=== PATIENT | male | born 1965 | race Caucasian/White ===

== ENCOUNTER 2017-02-28 10:36 | Day surgery (SDC) | payer BC ==
--- NOTE | 2017-02-28 06:24 | PCM.HP ---
H&P History of Present Illness - General Date of Service: 02/28/17 Admit Problem/Dx: Rectal bleeding, anemia Source of Information: Patient History Limitations: Reports: No limitations - History of Present Illness Initial Comments - Free Text/Narative: The patient is a 51-year-old male initially referred by Dr. Yary Fung for bleeding hemorrhoids. He was last evaluated for rectal bleeding on 01/17/17. He reports the following changes to his medical history. He does report bleeding is better. He has lost weight with intention, as he cut out sugar and carbs as he was getting sores on the inside of his mouth. He developed what his describes as a pressure sore last week. She noted a callus near his posterior anus, this opened up and is now the size of a quarter. She has been applying neosporin daily to the area without improvement. She reports he has never had a pressure sore in the past. He also reports he has had two skin lesions. One to left chest that he squeezed and a thick cheese like substance was noted. This area has resolved. He also had a skin lesion to the right chest that had hair and a thin purulent discharge that they did squeeze and did shoot across the room. Patient is a quadriplegic. Previously reported every other day has bowel program , which his administers. The program involves an enema and stimulation digitally. He does take Senna and Miralax as well. Has hemorrhoids and they have noted bleeding with routines. Reports-His bleeding was really bad when he saw Dr. Fung. Has had little to no bleeding since made this appointment. Has had external hemorrhoids x20 years, no firm or purple discoloration noted to the hemorrhoids. One in particular was very inflamed. . Has not done anything for the hemorrhoids, other have started completing the bowel program with extra care/gentleness. Stools are soft. He does have microcytic/iron deficiency anemia. Hgb/Hct 10.4/34.7 on 12/28/16. Down from 14.2/43.3 on . Now taking iron supplement. Had one unformed stools recently. Has had hematochezia. NO: melena. Stools are darker with iron, no darker stools prior to iron. Has Soft stools every other day. Has had some intentional weight loss. No change in stool caliber. No abdominal pain. Denies history of ulcerative colitis or Crohn's disease. Denies any family history of inflammatory bowel disease or GI cancers. Last colonoscopy was 2008, due to rectal bleeding? . No history of reflux, heartburn, nausea, vomiting, or dysphagia. - Related Data Allergies/Adverse Reactions: Allergies Allergy/AdvReac Type Severity Reaction Status Date / Time amoxicillin Allergy Cannot Verified 02/28/17 11:22 Remember Home Medications: Home Meds Alpha Lipoic Acid 600 mg PO DAILY 03/21/16 [History] Aspirin [Halfprin] 81 mg PO DAILY 03/21/16 [History] Baclofen 40 mg PO QID 03/21/16 [History] Calcium/Magnesium/Zinc [Calcium & Magnesium plus Zinc] 1 tab PO DAILY 03/21/16 [ History] Chromium Picolinate 500 mcg PO DAILY 03/21/16 [History] Diazepam [Valium] 5 mg PO BID 03/21/16 [History] Fish Oil/[place]-3 Fatty Acids [Fish Oil 1,000 MG] 1,000 mg PO BID 03/21/16 [ History] Multivitamin with Minerals [Jacek Multivitamin with Mineral] 1 tab PO BID [History] Na Phos,M-B/Na Phos,Di-Ba [Fleet Enema] 133 ml RC Q48H 03/21/16 [History] Polyethylene Glycol 3350 [MiraLAX] 17 gm PO Q48H 03/21/16 [History] Sennosides/Docusate Sodium [Senna S Tablet] 2 each PO Q48H 03/21/16 [History] Turmeric Root Extract [Turmeric] 1,000 mg PO DAILY 03/21/16 [History] Tamsulosin [Flomax] 0.4 mg PO BEDTIME #30 cap.er 03/27/16 [Rx] Acetylcarnitine [Acetyl l-Carnitine] 250 mg PO ASDIRECTED 02/27/17 [History] Carvedilol [Carvedilol] 25 mg PO DAILY 02/27/17 [History] Cholecalciferol (Vitamin D3) [Vitamin D3] 2,000 unit PO DAILY 02/27/17 [History] Digoxin [Lanoxin] 125 mcg PO 1200 02/27/17 [History] Glycerin 18% Gel 1 applic PO ASDIRECTED 02/27/17 [History] Hydrocortisone Acetate [Anusol-Hc] 1 supp RECTAL ASDIRECTED 02/27/17 [History] Iron Ag,Ps/C/Fa6/B12/Zn/SA/Sto [Niferex Tablet] 1 tab PO DAILY 02/27/17 [History ] Ubidecarenone [Coq-10] 100 mg PO DAILY 02/27/17 [History] Past Medical History HEENT History: Reports: Impaired vision, Other (see below) Other HEENT History: glasses Cardiovascular History: Reports: Afib, High cholesterol, Hypertension, Pacemaker Other Cardiovascular History: sick sinus syndrome prior to pacemaker placement Respiratory History: Reports: Sleep apnea, Other (see below) Other Respiratory History: restrictive ventillary defect, pulmonary collapse, restrictive lung disease, partial lung removal Gastrointestinal History: Reports: Other (see below) Other Gastrointestinal History: inguinal hernia Genitourinary History: Reports: Other (see below) Other Genitourinary History: 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 Musculoskeletal History: Reports: None Other Musculoskeletal History: quadraplegic Neurological History: Reports: Other (see below) Other Neuro History: 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 Psychiatric History: Reports: None Endocrine/Metabolic History: Reports: Other (see below) Other Endocrine/Metabolic History: hyperglycemia Hematologic History: Reports: None Immunologic History: Reports: None Oncologic (Cancer) History: Reports: None Dermatologic History: Reports: Psoriasis Other Dermatologic History: skin tags - Infectious Disease History Infectious Disease History: Reports: Chicken pox - Past Surgical History Head Surgeries/Procedures: HEENT Surgical History: Reports: Myringotomy w tube(s), Tonsillectomy Cardiovascular Surgical History: Reports: Pacer, Other (see below) Other Cardiovascular Surgeries/Procedures: ablation GI Surgical History: Reports: Colonoscopy Social & Family History - Family History Family Medical History: Noncontributory - Tobacco Use Smoking Status *Q: Light Tobacco Smoker Years of Tobacco use: 5 Packs/Tins Daily: 0.2 Used Tobacco, but Quit: No Second Hand Smoke Exposure: No - Alcohol Use Days Per Week of Alcohol Use: 7 Number of Drinks Per Day: 1 Total Drinks Per Week: 7 - Recreational Drug Use Recreational Drug Use: No Drug Use in Last 12 Months: No - Living Situation & Occupation Living situation: Reports: Occupation: employed H&P Review of Systems - Review of Systems: Review Of Systems: See Below Free Text/Narrative: Denies any exertional chest pain or shortness of breath. No history of any easy bleeding or bruising. No personal or familial history of clotting or bleeding disorders. No history of anesthetic complications. No history of familial anesthetic complications. Denies presence/history of chest pain, palpitations. Has hx of lower extremity edema. NO: dyspnea, orthopnea, claudication, wheezing. Has obstructive sleep apnea, uses CPAP. NO: chronic cough, upper respiratory symptoms in the last two weeks. No history of blood thinner use, with the exception of ASA. New hx of anemia. No history of seizure or stroke. Also reports trouble emptying bladder recently with increased diaphoresis with these episodes. His did feel a firm suprapubic area prior to urination x 1. Did go away after urination. No firm bulges in abdomen since that episode. No hernias or s/s hernia incarceration. Does have a urologist appointment. No longer self catheterizes due to prior UTIs. No history of fever, chills, or night sweats. Prior cardiology and pulmonology evaluation. He does have paroxysmal atrial fibrillation. He takes Digoxin for this. Last visit was with cardiology, Dr. Antonio 02/02/17 General: Reports: no symptoms. Denies: fever, chills HEENT: Reports: no symptoms Pulmonary: Reports: No Symptoms, Other (had a cold a few weeks ago this has resolved) Cardiovascular: Reports: no symptoms. Denies: chest pain, palpitations Gastrointestinal: Reports: No symptoms Musculoskeletal: Reports: no symptoms Skin: Reports: other (see hpi) Psychiatric: Reports: no symptoms Neurological: Reports: No Symptoms Hematologic/Lymphatic: Reports: no symptoms Immunologic: Reports: no symptoms Exam - Exam Exam: See Below - Vital Signs Weight: 145.15 kg - Exam General: alert, oriented HEENT: Conjunctiva clear. No: Scleral icterus Lungs: Clear to auscultation, Normal respiratory effort Cardiovascular: regular rate, regular rhythm, normal S1, normal S2 Abdomen: normal bowel sounds, soft Back Exam: normal inspection Extremities: normal inspection. No: clubbing, edema Skin: warm, dry, other (anal rectal exam deferred) Neuro Extensive - Mental Status: alert, oriented x3, normal mood/affect, normal cognition, memory intact Psychiatric: alert, normal affect, normal mood *Q Meaningful Use (ADM) - VTE *Q VTE Criteria *Q: - Stroke *Q Stroke Criteria *Q: - AMI *Q AMI Criteria *Q: Problem List Initiated/Reviewed/Updated: Yes Orders Last 24hrs: Active Orders 24 hr Category Date Time Status Peripheral IV Care [RC] . DIRECTED Care 02/28/17 00:01 Active Verify Patient Consent Obtain [RC] ASDIRECTED Care 02/28/17 00:01 Active Lactated Ringers [Ringers, Lactated] 1,000 ml Med 02/28/17 00:01 Active IV ASDIRECTED Lidocaine 1%/Sod Bicarbonate [Buffered Lidocaine 1% in Med 02/28/17 00:01 Active NS 8.4%] 0.25 ml IV ONETIME PRN Sodium Chloride 0.9% [Saline Flush] Med 02/28/17 00:01 Active 10 ml FLUSH ASDIRECTED PRN Medication Administration Instruction [OM.PC] Routine Oth 02/28/17 00:01 Ordered Peripheral IV Insertion Adult [OM.PC] Routine Oth 02/28/17 00:01 Ordered Medication Orders Lactated Ringer's (Ringers, Lactated) 1,000 mls @ 125 mls/hr IV ASDIRECTED MEGHAN Stop: 02/28/17 23:00 Lidocaine/Sodium Bicarbonate (Buffered Lidocaine 1% In Ns 8.4%) 0.25 ml IV ONETIME PRN PRN Reason: Prior to IV Start Stop: 02/28/17 18:00 Sodium Chloride (Saline Flush) 10 ml FLUSH ASDIRECTED PRN PRN Reason: Keep Vein Open Stop: 02/28/17 18:00 Assessment/Plan Comment:: 51yr male with anemia, hemorrhoids, hematochezia, rectal bleeding, need for diagnostic EGD, diagnostic colonoscopy with possible hemorrhoidal banding Skin concerns PLAN: We discussed performing a diagnostic EGD and diagnostic colonoscopy with possible hemorrhoidal banding. We discussed the procedure risks and benefits including pain, bleeding, infection, damage to surrounding structures, need for additional procedures, bowel perforation. This procedure will be done at [facility], due to complex medical history. does report a possible pressure sore to sacral/jinny-anal area. Will examine area of skin concern during endoscopy and offer suggestions for treatment post endoscopy. No sebaceous cyst or abscess was noted to chest wall. Did discuss the left chest lesion sounded consistent with sebaceous cyst , he should return to clinic for excision if this recurs/becomes irritated. Discussed the right chest skin lesion sounded consistent with an ingrown hair and has also resolved. This patient was evaluated with Dr. Billie Wilks, plan formulated above. Shauna Osman NP scribing for Dr. Billie Wilks
[~2017-02-28 10:36] MED LIST: Lactated Ringers 1,000 ML IV SCH; Lidocaine 1%/Sod Bicarbonate in NS 8.4% 1 ML Syringe IV PRN; Sodium Chloride 0.9% 10 ML Syringe FLUSH PRN
--- NOTE | 2017-02-28 10:52 | PCM.PREANE ---
Preanesthetic Assessment - Anesthesia/Transfusion/Family Hx Anesthesia History: Prior Anesthesia Without Reaction Family History of Anesthesia Reaction: No Transfusion History: No Prior Transfusion(s) - Review of Systems General: No Symptoms Pulmonary: No Symptoms Cardiovascular: No Symptoms Gastrointestinal: No symptoms Neurological: Other (quadraplegic) Other: Reports: None - Physical Assessment NPO Status Date: 02/27/17 NPO Status Time: 20:00 Pulse: 75 O2 Sat by Pulse Oximetry: 95 Respiratory Rate: 20 Blood Pressure: 147/78 Temperature: 97 F Height: 6 ft 4 in Weight: 127 kg ASA Class: 3 Mental Status: Alert & Oriented x3 Airway Class: Mallampati = 1 Dentition: Reports: Normal Dentition Thyro-Mental Finger Breadths: 3 Mouth Opening Finger Breadths: 3 ROM/Head Extension: Full Lungs: Clear to auscultation, Normal respiratory effort Cardiovascular: Regular Rate, Regular Rhythm - Allergies Allergies/Adverse Reactions: Allergies Allergy/AdvReac Type Severity Reaction Status Date / Time amoxicillin Allergy Cannot Verified 02/27/17 13:56 Remember - Blood Blood Available: No - Anesthesia Plan Beta Della: Carvedilol Med Last Dose Date: 02/27/17 Med Last Dose Time: 12:00 - Acknowledgements Anesthesia Type Planned: MAC Pt an Appropriate Candidate for the Planned Anesthesia: Yes Alternatives and Risks of Anesthesia Discussed w Pt/Guardian: Yes Pt/Guardian Understands and Agrees with Anesthesia Plan: Yes PreAnesthesia Questionnaire HEENT History: Reports: Impaired vision, Other (see below) Other HEENT History: glasses Cardiovascular History: Reports: Afib, High cholesterol, Hypertension, Pacemaker Other Cardiovascular History: sick sinus syndrome prior to pacemaker placement Respiratory History: Reports: Sleep apnea, Other (see below) Other Respiratory History: restrictive ventillary defect, pulmonary collapse, restrictive lung disease, partial lung removal Gastrointestinal History: Reports: Other (see below) Other Gastrointestinal History: inguinal hernia Genitourinary History: Reports: Other (see below) Other Genitourinary History: 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 Musculoskeletal History: Reports: None Other Musculoskeletal History: quadraplegic Neurological History: Reports: Other (see below) Other Neuro History: 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 Psychiatric History: Reports: None Endocrine/Metabolic History: Reports: Obesity/BMI 30+, Other (see below) Other Endocrine/Metabolic History: hyperglycemia Hematologic History: Reports: None Immunologic History: Reports: None Oncologic (Cancer) History: Reports: None Dermatologic History: Reports: Psoriasis Other Dermatologic History: skin tags - Infectious Disease History Infectious Disease History: Reports: Chicken pox - Past Surgical History Head Surgeries/Procedures: HEENT Surgical History: Reports: Myringotomy w tube(s), Tonsillectomy Cardiovascular Surgical History: Reports: Pacer, Other (see below) Other Cardiovascular Surgeries/Procedures: ablation GI Surgical History: Reports: Colonoscopy - SUBSTANCE USE Smoking Status *Q: Light Tobacco Smoker Tobacco Use Within Last Twelve Months: Cigars Second Hand Smoke Exposure: No Days Per Week of Alcohol Use: 7 Number of Drinks Per Day: 1 Total Drinks Per Week: 7 Recreational Drug Use History: No - HOME MEDS Home Medications: Home Meds Alpha Lipoic Acid 600 mg PO DAILY 03/21/16 [History] Aspirin [Halfprin] 81 mg PO DAILY 03/21/16 [History] Baclofen 40 mg PO QID 03/21/16 [History] Calcium/Magnesium/Zinc [Calcium & Magnesium plus Zinc] 1 tab PO DAILY 03/21/16 [ History] Chromium Picolinate 500 mcg PO DAILY 03/21/16 [History] Diazepam [Valium] 5 mg PO BID 03/21/16 [History] Fish Oil/[place]-3 Fatty Acids [Fish Oil 1,000 MG] 1,000 mg PO BID 03/21/16 [ History] Multivitamin with Minerals [Jacek Multivitamin with Mineral] 1 tab PO BID [History] Na Phos,M-B/Na Phos,Di-Ba [Fleet Enema] 133 ml RC Q48H 03/21/16 [History] Polyethylene Glycol 3350 [MiraLAX] 17 gm PO Q48H 03/21/16 [History] Sennosides/Docusate Sodium [Senna S Tablet] 2 each PO Q48H 03/21/16 [History] Turmeric Root Extract [Turmeric] 1,000 mg PO DAILY 03/21/16 [History] Tamsulosin [Flomax] 0.4 mg PO BEDTIME #30 cap.er 03/27/16 [Rx] Acetylcarnitine [Acetyl l-Carnitine] 250 mg PO ASDIRECTED 02/27/17 [History] Carvedilol [Carvedilol] 25 mg PO DAILY 02/27/17 [History] Cholecalciferol (Vitamin D3) [Vitamin D3] 2,000 unit PO DAILY 02/27/17 [History] Digoxin [Lanoxin] 125 mcg PO 1200 02/27/17 [History] Glycerin 18% Gel 1 applic PO ASDIRECTED 02/27/17 [History] Hydrocortisone Acetate [Anusol-Hc] 1 supp RECTAL ASDIRECTED 02/27/17 [History] Iron Ag,Ps/C/Fa6/B12/Zn/SA/Sto [Niferex Tablet] 1 tab PO DAILY 02/27/17 [History ] Ubidecarenone [Coq-10] 100 mg PO DAILY 02/27/17 [History] - CURRENT (IN HOUSE) MEDS Current Meds: Current Medications Lactated Ringer's (Ringers, Lactated) 1,000 mls @ 125 mls/hr IV ASDIRECTED MEGHAN Stop: 02/28/17 23:00 Lidocaine/Sodium Bicarbonate (Buffered Lidocaine 1% In Ns 8.4%) 0.25 ml IV ONETIME PRN PRN Reason: Prior to IV Start Stop: 02/28/17 18:00 Sodium Chloride (Saline Flush) 10 ml FLUSH ASDIRECTED PRN PRN Reason: Keep Vein Open Stop: 02/28/17 18:00
[2017-02-28] MEDS ORDERED: Propofol 200 MG/20 ML SDV ONE ×2 (11:20→12:12)
[2017-02-28] MEDS ORDERED: fentaNYL 100 MCG/2 ML SDV ONE (11:21)
[2017-02-28] MEDS ORDERED: Lidocaine 1% 4 ML ONE (12:34)
--- NOTE | 2017-02-28 12:35 | PCM48HPAN ---
Post Anesthesia Note - EVALUATION WITHIN 48HRS OF ANESTHETIC Vital Signs in Normal Range: Yes Patient Participated in Evaluation: Yes Respiratory Function Stable: Yes Airway Patent: Yes Cardiovascular Function Stable: Yes (Ephedrine given in preop room. Pt asymptomatic but want BP closer to preop) Hydration Status Stable: Yes Pain Control Satisfactory: Yes Nausea and Vomiting Control Satisfactory: Yes Mental Status Recovered: Yes
--- NOTE | 2017-02-28 12:50 | PCM.OPNOTE ---
- General Post-Op/Procedure Note Date of Surgery/Procedure: 02/28/17 Operative Procedure(s): 1. Diagnostic EGD. 2. Diagnostic colonoscopy with hot snare polypectomy. 3. Hemorrhoidal banding Pre Op Diagnosis: Rectal bleeding, anemia Post-Op Diagnosis: 1. Normal upper GI. 2. Grade II hemorrhoids. 3. External hemorrhoidal skin tags. 4. Colon polyps. 5. Scant diverticulosis. 6. Stage II decubitus ulcer of the right ischial tuberosity Anesthesia Technique: MAC Primary Surgeon: Billie Wilks Anesthesia Provider: Victor M Olivas Pathology: Sigmoid and rectal polyp Fluid Replacement, Intraop: 800 (mL crystalloid ) EBL in mLs: 2 Complications: None Condition: Good Free Text/Narrative:: INDICATION FOR PROCEDURE: The patient is a 51-year-old man who was referred to me by Dr. Yary Fung for evaluation for rectal bleeding and anemia. Performing a colonoscopy and EGD and the associated risks of the procedures had been discussed with the patient. The patient found these risks acceptable and agreed to proceed. DESCRIPTION OF PROCEDURE: The patient was taken to the operating room and placed in the left lateral decubitus position. After induction of adequate sedation, a bite block was placed. A standard Olympus gastroscope was inserted into the oropharynx and guided down the esophagus without difficulty. The gastroesophageal junction was appreciated at 39 cm from the teeth. There was no evidence of stricture or esophageal ulcerations. The scope was advanced into the stomach, which was unremarkable. The scope was passed into the proximal jejunum and the duodenum which was unremarkable. There were no petechiae or ulcerations. The proximal jejunum was grossly normal in appearance. The scope was withdrawn into the antrum and the remainder of the gastric body was examined, and there were no additional findings. The scope was retroflexed, and there was no evidence of hiatal hernia. The scope was straightened and withdrawn to the GE junction. Additional cold forceps biopsies were obtained of the distal esophagus. The scope was withdrawn through the remainder of the esophagus and no further abnormalities were noted. The posterior oropharynx was grossly normal in appearance. The scope was fully withdrawn and attention was then turned to the colonoscopy. A digital rectal exam was performed which showed large external hemorrhoidal skin tags and prolapsing internal hemorrhoids. There was also a Stage II pressure ulcer on the patient's right ischial tuberosity. An adult Olympus colonoscope was inserted into the rectum and guided under direct visualization to the appendiceal orifice and ileocecal valve. The scope was then slowly withdrawn through the colon. The quality of the prep was good. There was no evidence of angiodysplasias. There were scant scattered diverticulum. Two polyps were noted, one in the sigmoid colon and one in the rectum, both were small and sessile. Both were removed using hot snare polypectomy and retrieved. The scope was withdrawn into the rectum and retroflexed. There were grade 2, nearly grade 3 internal hemorrhoids. The scope was straightened, the colon was desufflated,and the scope was withdrawn. Hemorrhoidal banding was then performed using the Short Shot device. The patient was awakened from sedation and transferred to the recovery room in stable condition having tolerated the procedure well. POSTOPERATIVE PLAN: I discussed my intraoperative findings with the patient and his . The patient will follow up in approximately 7-10 days to discuss pathology and how their symptoms are progressing. The patient is to continue his current bowel regimen, taking care with any enemas. The patient is to call with any worsening of symptoms or questions prior to the appointment.
[2017-02-28 14:18] VITALS: BP 118/75
== END 2017-02-28 13:30 | disposition home or self-care (01) ==
LOC: JD.SDS 10:36
PROVIDERS: ATTEND Surgery
DX: D12.5 Benign neoplasm of sigmoid colon (principal); D12.8 Benign neoplasm of rectum; Z88.1 Allergy status to other antibiotic agents; K57.30 Diverticulosis of large intestine without perforation or abscess without bleeding; K64.8 Other hemorrhoids; Z79.82 Long term (current) use of aspirin; Z79.899 Other long term (current) drug therapy; I10 Essential (primary) hypertension; E78.00 Pure hypercholesterolemia, unspecified; Z95.0 Presence of cardiac pacemaker; R73.9 Hyperglycemia, unspecified; Z98.890 Other specified postprocedural states; Z72.0 Tobacco use; G47.30 Sleep apnea, unspecified
CPT/HCPCS: 43239; 45385; 88305; J3010; J7120; 00810; J2704

== ENCOUNTER 2017-05-17 13:00 | Day surgery (SDC) | payer BC ==
[~2017-05-17 13:00] MED LIST changes: +cefOXitin 2 GM in Premix Bag 1 BAG IV SCH
[2017-05-17] MEDS ORDERED: Bupivacaine 0.5%/EPINEPHrine 1:200,000 50 ML MDV ONE (13:08)
[2017-05-17] MEDS ORDERED: Lidocaine 1% with EPINEPHrine 1:100,000 20 ML MDV ONE (13:08)
--- NOTE | 2017-05-17 13:33 | PCM.PREANE ---
Preanesthetic Assessment - Anesthesia/Transfusion/Family Hx Anesthesia History: Prior Anesthesia Without Reaction Family History of Anesthesia Reaction: No Transfusion History: No Prior Transfusion(s) - Review of Systems General: No Symptoms Pulmonary: No Symptoms Cardiovascular: No Symptoms Gastrointestinal: No symptoms Neurological: No Symptoms Other: Reports: None - Physical Assessment NPO Status Date: 05/16/17 NPO Status Time: 00:00 Pulse: 79 O2 Sat by Pulse Oximetry: 93 Respiratory Rate: 16 Blood Pressure: 148/98 Temperature: 37.3 C Height: 2.01 m Weight: 127.006 kg ASA Class: 3 Mental Status: Alert & Oriented x3 Airway Class: Mallampati = 2 Dentition: Reports: Normal Dentition Thyro-Mental Finger Breadths: 3 Mouth Opening Finger Breadths: 3 ROM/Head Extension: Full Lungs: Clear to auscultation, Normal respiratory effort, Decreased breath sounds Cardiovascular: Regular Rate, Regular Rhythm - Allergies Allergies/Adverse Reactions: Allergies Allergy/AdvReac Type Severity Reaction Status Date / Time amoxicillin Allergy Cannot Verified 05/16/17 15:36 Remember - Anesthesia Plan Pre-Op Medication Ordered: Beta Della Beta Della: Carvedilol Med Last Dose Date: 05/16/17 Med Last Dose Time: 21:00 - Acknowledgements Anesthesia Type Planned: MAC Pt an Appropriate Candidate for the Planned Anesthesia: Yes Alternatives and Risks of Anesthesia Discussed w Pt/Guardian: Yes Pt/Guardian Understands and Agrees with Anesthesia Plan: Yes PreAnesthesia Questionnaire HEENT History: Reports: Impaired Vision, Other (See Below) Other HEENT History: glasses Cardiovascular History: Reports: Afib, High Cholesterol, Hypertension, Pacemaker Other Cardiovascular History: sick sinus syndrome prior to pacemaker placement Respiratory History: Reports: Sleep Apnea, Other (See Below) Other Respiratory History: restrictive ventillary defect, pulmonary collapse, restrictive lung disease, partial lung removal Gastrointestinal History: Reports: Hemorrhoids, Other (See Below) Other Gastrointestinal History: tubular adenoma, hematochezia Genitourinary History: Reports: Other (See Below) Other Genitourinary History: chronic indwelling catheter, frequent UTIs PRESS TENDER History: Reports: None Musculoskeletal History: Reports: None Other Musculoskeletal History: quadraplegic Neurological History: Reports: Other (See Below) Other Neuro History: 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 Psychiatric History: Reports: None Endocrine/Metabolic History: Reports: Obesity/BMI 30+, Other (See Below) Other Endocrine/Metabolic History: hyperglycemia Hematologic History: Reports: None Immunologic History: Reports: None Oncologic (Cancer) History: Reports: None Dermatologic History: Reports: Psoriasis Other Dermatologic History: skin tags, hidradenitis - Infectious Disease History Infectious Disease History: Reports: Chicken Pox - Past Surgical History HEENT Surgical History: Reports: Myringotomy w Tube(s), Tonsillectomy Cardiovascular Surgical History: Reports: Pacer, Other (See Below) Other Cardiovascular Surgeries/Procedures: ablation GI Surgical History: Reports: Colonoscopy, EGD, Hernia Repair/Other Other GI Surgeries/Procedures: hernia repair Male Surgical History: Reports: Other (See Below) Other Male Surgeries/Procedures: patient has a [place] (condom) catheter. - SUBSTANCE USE Smoking Status *Q: Light Tobacco Smoker Tobacco Use Within Last Twelve Months: Cigars Second Hand Smoke Exposure: No Days Per Week of Alcohol Use: 7 Number of Drinks Per Day: 1 Total Drinks Per Week: 7 Recreational Drug Use History: No - HOME MEDS Home Medications: Home Meds Alpha Lipoic Acid 600 mg PO DAILY 03/21/16 [History] Aspirin [Halfprin] 81 mg PO DAILY 03/21/16 [History] Baclofen 40 mg PO QID 03/21/16 [History] Calcium/Magnesium/Zinc [Calcium & Magnesium plus Zinc] 1 tab PO DAILY 03/21/16 [ History] Chromium Picolinate 500 mcg PO DAILY 03/21/16 [History] Diazepam [Valium] 5 mg PO BID 03/21/16 [History] Fish Oil/Watkins-3 Fatty Acids [Fish Oil 1,000 MG] 1,000 mg PO BID 03/21/16 [ History] Multivitamin with Minerals [Jacek Multivitamin with Mineral] 1 tab PO BID [History] Na Phos,M-B/Na Phos,Di-Ba [Fleet Enema] 133 ml RC Q48H 03/21/16 [History] Polyethylene Glycol 3350 [MiraLAX] 17 gm PO Q48H 03/21/16 [History] Sennosides/Docusate Sodium [Senna S Tablet] 2 each PO Q48H 03/21/16 [History] Turmeric Root Extract [Turmeric] 1,000 mg PO DAILY 03/21/16 [History] Acetylcarnitine [Acetyl l-Carnitine] 250 mg PO ASDIRECTED 02/27/17 [History] Carvedilol 25 mg PO DAILY 02/27/17 [History] Cholecalciferol (Vitamin D3) [Vitamin D3] 2,000 unit PO DAILY 02/27/17 [History] Digoxin [Lanoxin] 125 mcg PO 1200 02/27/17 [History] Glycerin 18% Gel 1 applic PO ASDIRECTED 02/27/17 [History] Hydrocortisone Acetate [Anusol-Hc] 1 supp RECTAL ASDIRECTED 02/27/17 [History] Iron Ag,Ps/C/Fa6/B12/Zn/SA/Sto [Niferex Tablet] 1 tab PO DAILY 02/27/17 [History ] Ubidecarenone [Coq-10] 100 mg PO DAILY 02/27/17 [History] Terazosin HCl [Terazosin] 5 mg PO DAILY 05/16/17 [History] - CURRENT (IN HOUSE) MEDS Current Meds: Current Medications Lactated Ringer's (Ringers, Lactated) 1,000 mls @ 125 mls/hr IV ASDIRECTED MEGHAN Stop: 05/17/17 23:00 Cefoxitin Sodium 2 gm/ Premix 50 mls @ 100 mls/hr IV ONETIME MEGHAN Stop: 05/17/17 18:00 Lidocaine/Sodium Bicarbonate (Buffered Lidocaine 1% In Ns 8.4%) 0.25 ml IV ONETIME PRN PRN Reason: Prior to IV Start Stop: 05/17/17 18:00 Sodium Chloride (Saline Flush) 10 ml FLUSH ASDIRECTED PRN PRN Reason: Keep Vein Open Stop: 05/17/17 18:00 Discontinued Medications Bupivacaine HCl/Epinephrine Bitart (Marcaine 0.5%/Epinephrine 1:200,000) Confirm Administered Dose 50 ml .ROUTE .STK-MED ONE Stop: 05/17/17 13:09 Lidocaine/Epinephrine (Xylocaine 1% With Epinephrine 1:100,000) Confirm Administered Dose 20 ml .ROUTE .STK-MED ONE Stop: 05/17/17 13:09
[2017-05-17] MEDS ORDERED: Baclofen 10 MG Tab PO SCH (14:00)
[2017-05-17] MEDS ORDERED: Lidocaine 1% 4 ML ONE (14:07)
[2017-05-17] MEDS ORDERED: Midazolam 1 MG/ML 2 ML SDV ONE (14:07)
[2017-05-17] MEDS ORDERED: Ondansetron 4 MG/2 ML SDV ONE (14:07)
[2017-05-17] MEDS ORDERED: Propofol 200 MG/20 ML SDV ONE ×3 (14:07→15:08)
[2017-05-17] MEDS ORDERED: fentaNYL 100 MCG/2 ML SDV ONE (14:07)
[2017-05-17] MEDS: Thrombin (Bovine) 5,000 Unit Kit ONE ×2 (14:30→14:52)
[2017-05-17] MEDS ORDERED: Labetalol 100 MG/20 ML MDV ONE (14:40)
[2017-05-17] MEDS ORDERED: Bacitracin Oint 15 GM Tube ONE (14:43)
--- NOTE | 2017-05-17 15:34 | PCM.OPNOTE ---
- General Post-Op/Procedure Note Date of Surgery/Procedure: 05/17/17 Operative Procedure(s): 1. Exam under anesthesia. 2. Exploration and evacuation of perineal hematoma. 3. Right anterior hemorrhoidectomy. 4. Left lateral hemorrhoid banding. 5. Excision of left chest skin lesion Pre Op Diagnosis: 1. Grade II/III internal hemorrhoids. 2. Possible fistula in ano. 3. Chronic left chest wound Post-Op Diagnosis: 1. Grade II/III internal hemorrhoids. 2. Perineal hematoma. 3. Chronic left chest wound Anesthesia Technique: Local (28 mL), MAC Primary Surgeon: Billie Wilks Anesthesia Provider: Lopez Trevino Pathology: Right anterior hemorrhoid Fluid Replacement, Intraop: 500 (mL crystalloid ) EBL in mLs: 15 Complications: None Condition: Good Free Text/Narrative:: INDICATION FOR PROCEDURE: The patient is a 52-year-old man, who is a patient of Dr. Yary Fung, who had reported symptoms concerning for a fistula in ano. The patient does have quadriplegia and it had been difficult to complete his examination in the office. He also has grade 2 and 3 internal hemorrhoids and desired excision after banding had provided partial benefit from bleeding and intermittent prolapse. Finally, the patient had an area of chronic hidradenitis on the left chest, and desired this area excised. Risks and benefits of the procedures had been discussed in detail with the patient and his . They found these risks acceptable and agreed to proceed. DESCRIPTION OF PROCEDURE: The patient was taken to the operating room and placed in the supine position. Preoperative antibiotics were administered as per protocol. After induction of adequate sedation, the patient was placed in dorsal lithotomy and pressure points were adequately padded. The perianal area was prepped and draped in usual sterile fashion. A perianal block was then provided using a lidocaine with epinephrine and Marcaine mixture. Further examination of the perianal area demonstrated a grade 3 internal hemorrhoid in the right anterior position, and grade 2 internal hemorrhoids in the left lateral and right posterior positions. There was no evidence of fistula in ano. On examination of the perineum, with gentle pressure, I was able to express a small amount of dark blood, which is what the patient had reported in the office. Further pressure on the perineum revealed 2 punctate openings on the right perineum in vertical alignment that would both drain the dark bloody fluid. There was no area of erythema or induration. A lacrimal duct probe probe was placed in between the 2 openings, and they were found to be connected. This area was then opened over the lacrimal duct probe and explored. Some old liquifying hematoma was found and evacuated. The incision measured 4.5 cm in length. The underlying area was explored. There was no evidence of infection, necrosis, simply oozing, chronically inflamed subcutaneous tissue. The area was cauterized. There was one area medially where I placed a [id number] 3-0 Vicryl suture to help with spot bleeding. Careful probing of the area did not demonstrate any tracts or fistulization in other directions. The area was then copiously irrigated and hemostasis was confirmed. The skin in this area was reapproximated using interrupted 3-0 Vicryl sutures to allow for further drainage if reaccumulation were to occur. Attention was then turned to the patient's hemorrhoidal disease. After digital rectal examination, a bivalve speculum was placed and the right anterior hemorrhoidal complex was grasped using a DeBakey. The hemorrhoid complex was then excised using a LigaSure device. Hemostasis was obtained. The internal hemorrhoid was sent as specimen. During the procedure, with the placement of the retractor, etc., the left lateral hemorrhoidal complex became irritated and began to bleed. Hemorrhoidal banding was performed of the left lateral internal hemorrhoid with complete hemostasis. Gelfoam soaked in 5000 units of thrombin was then rolled and placed into the anal canal. Attention was then turned to the patient's left chest. Gloves were changed. The left chest was prepped and draped in usual sterile fashion with Betadine. Local anesthetic was injected. The chronic wound, which measured 1 cm x 3 cm, was excised in an ellipse in its entirety down to normal-appearing subcutaneous fat with a scalpel. The size of the defect repaired was 4 cm by 2 cm. The skin was then reapproximated using a running Lembert 3-0 Monocryl after obtaining hemostasis with electrocautery. Bacitracin and gauze was applied. The patient was then awakened from sedation, returned to a supine position, and transferred to the recovery room in stable condition having tolerated the procedures well. Sponge and instrument counts reported as correct at the end of the case. POST-OPERATIVE PLAN: I discussed with the patient and his my intraoperative findings recommendations after he had awoken. The findings in the perineum was most consistent with a perineal hematoma. The patient's thought this may be attributed to occasional use of a wooden slide board. The patient will follow-up with me next , May 24 in the office for a postoperative check. Wound care instructions were provided. They are to call with any questions or concerns prior to his appointment.
[2017-05-17] MEDS ORDERED: Acetaminophen/oxyCODONE 325-5 MG Tab PO ONE (15:45)
[2017-05-17 16:22] VITALS: BP 97/65
== END 2017-05-17 16:15 | disposition home or self-care (01) ==
LOC: JD.SDS 13:00
PROVIDERS: ATTEND Surgery
PROC: 0J9B0ZZ Drainage of Perineum Subcutaneous Tissue and Fascia, Open Approach (ICD-10-PCS; principal; 2017-05-17)
PROC: 06BY3ZC Excision of Hemorrhoidal Plexus, Percutaneous Approach (ICD-10-PCS; 2017-05-17)
DX: K64.1 Second degree hemorrhoids (principal); K64.2 Third degree hemorrhoids; K64.4 Residual hemorrhoidal skin tags; L72.0 Epidermal cyst; S30.0XXA Contusion of lower back and pelvis, initial encounter; I10 Essential (primary) hypertension; E78.00 Pure hypercholesterolemia, unspecified; I49.5 Sick sinus syndrome; G82.50 Quadriplegia, unspecified; I48.0 Paroxysmal atrial fibrillation; J44.9 Chronic obstructive pulmonary disease, unspecified; G47.30 Sleep apnea, unspecified; N31.9 Neuromuscular dysfunction of bladder, unspecified; F17.290 Nicotine dependence, other tobacco product, uncomplicated; E66.9 Obesity, unspecified; Z86.010 Personal history of colon polyps; Z87.440 Personal history of urinary (tract) infections; Z79.82 Long term (current) use of aspirin; Z79.899 Other long term (current) drug therapy; Z88.0 Allergy status to penicillin; Z95.0 Presence of cardiac pacemaker; Z90.89 Acquired absence of other organs; Z98.890 Other specified postprocedural states; Z68.32 Body mass index [BMI] 32.0-32.9, adult
CPT/HCPCS: 10140; 11403; 46260; 88304; 88305; A9270; J0694; J2250; J2405; J3010; J7120; 00902; J2704

== ENCOUNTER 2017-11-30 15:46 | Emergency (ER) | payer BC ==
[2017-11-30 16:11] VITALS: BP 187/129
--- NOTE | 2017-11-30 16:41 | EDM.PDOC ---
ED HPI GENERAL MEDICAL PROBLEM - General Chief Complaint: Lower Extremity Injury/Pain Stated Complaint: SENT BY PCP Time Seen by Provider: 11/30/17 16:25 Source of Information: Reports: Patient, Family (spouse) History Limitations: Reports: No Limitations - History of Present Illness INITIAL COMMENTS - FREE TEXT/NARRATIVE: 52-year-old male who is a known quadriplegic presents to the ED at the request of his primary care physician. Dr. Yary Fung states she seen him in clinic yesterday and diagnosed with a urinary tract infection. Of note the patient is aware of the sensation of need to void and he pushes on his lower abdominal wall usually can get his bladder stimulated to drain. He wears a chronic condom catheter with leg bag drainage. He is usually been on Bactrim double strength once daily for prevention of infection currently this was discontinued and he was started on Levaquin 500 mg once daily yesterday. Due to increased diffuse muscle spasms over the last several months Dr. Fung had a CT of his chest abdomen pelvis carried out. CT of the chest proved to be normal. CT the abdomen was reported as normal. CT of the pelvis reveals evidence of marked prostatic enlargement with thickening of the bladder wall characteristic of chronic bladder outlet obstruction and/or infection. His comments in the pelvis or bilateral decubitus ulcers with changes of ischial sacroiliitis greater on the left as compared to the right. 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 He was therefore advised to coming to the ED today with a view to being admitted for prolonged antibiotic therapy. Patient reports that his muscle spasticity has become much worse over the last couple of months. He does not report any night sweats fever or chills. Appetite has remained fair. He is not diabetic. He has had problems with sacral decubitus ulcers in the past. In March of last year he did undergo a hemorrhoidectomy in that same time an incision and drainage over a chronic hematoma on the right side of his perineum over the ischial tuberosity. This wound was left open to close on its own and remains open with occasional serous drainage. places a dressing on this daily. She has never noted the wound to be reddened or obviously purulent. Apparently was draining blood on a recurrent basis due to chronic hematoma at the time and was incised and drained. This was done by Dr. Fran Wilks a former surgeon at [facility]. Onset: Unknown/Unsure Duration: Week(s): (mild clonus and spasticity the last couple of months.) Location: Reports: Other (CT has suggested he has bilateral osteomyelitis in his ischial tuberosities.) Quality: Reports: Other (Patient is unaware of any signs of infection other than his bladder.) Severity: Moderate (Diagnosed by CT scan.) Context: Reports: Other (He is confined to a wheelchair most of the day due to quadriplegia.). Denies: Activity, Exercise, Lifting, Sick Contact Associated Symptoms: Reports: Rash (Developed in his medial thighs bilaterally yesterday. This is bright red and erythematous compared with candidiasis.). Denies: Confusion, Chest Pain, Cough, cough w sputum, Diaphoresis, Fever/Chills , Headaches, Loss of Appetite, Malaise, Nausea/Vomiting Treatments FORECLOSURE PARALEGAL: Reports: Other (see below) (None.) - Related Data Allergies Allergy/AdvReac Type Severity Reaction Status Date / Time amoxicillin Allergy Cannot Verified 05/16/17 15:36 Remember Home Meds: Home Meds Alpha Lipoic Acid 600 mg PO DAILY 03/21/16 [History] Aspirin [Halfprin] 81 mg PO DAILY 03/21/16 [History] Baclofen 40 mg PO QID 03/21/16 [History] Chromium Picolinate 500 mcg PO DAILY 03/21/16 [History] Diazepam [Valium] 2 mg PO Q8HR PRN 03/21/16 [History] Fish Oil/[place]-3 Fatty Acids [Fish Oil 1,000 MG] 1,500 mg PO BID 03/21/16 [ History] Multivitamin with Minerals [Jacek Multivitamin with Mineral] 1 tab PO DAILY 03/21 [History] Polyethylene Glycol 3350 [MiraLAX] 17 gm PO Q48H 03/21/16 [History] Sennosides/Docusate Sodium [Senna S Tablet] 2 each PO Q48H 03/21/16 [History] Carvedilol 37.5 mg PO BID 02/27/17 [History] Cholecalciferol (Vitamin D3) [Vitamin D3] 2,000 unit PO DAILY 02/27/17 [History] Digoxin [Lanoxin] 0.25 mg PO DAILY 02/27/17 [History] Terazosin HCl [Terazosin] 5 mg PO BEDTIME 05/16/17 [History] Acetylcarnitine [Acetyl l-Carnitine] 1,000 mg PO DAILY 11/30/17 [History] Clotrimazole [Lotrimin AF 1% Top Soln] 1 dose TOP BID 11/30/17 [History] Levofloxacin [Levaquin] 250 mg PO DAILY 11/30/17 [History] Lisinopril 5 mg PO DAILY 11/30/17 [History] Magnesium Oxide 400 mg PO BID 11/30/17 [History] Sodium Phosphate,Collin-Dibasic [Enema Ready To Use] 1 dose RECTAL ASDIRECTED [History] Terbinafine [LamISIL AT] 30 gm TP BID #1 tube 11/30/17 [Rx] Turmeric Root Extract [Turmeric] 1,050 mg PO DAILY 11/30/17 [History] Past Medical History HEENT History: Reports: Impaired Vision, Other (See Below) Other HEENT History: glasses Cardiovascular History: Reports: Afib, High Cholesterol, Hypertension, Pacemaker Other Cardiovascular History: sick sinus syndrome prior to pacemaker placement Respiratory History: Reports: Sleep Apnea, Other (See Below) Other Respiratory History: restrictive ventillary defect, pulmonary collapse, restrictive lung disease, partial lung removal Gastrointestinal History: Reports: Hemorrhoids, Other (See Below) Other Gastrointestinal History: tubular adenoma, hematochezia Genitourinary History: Reports: Other (See Below) Other Genitourinary History: chronic indwelling catheter, frequent UTIs SHOT COAT TENDER History: Reports: None Musculoskeletal History: Reports: None Other Musculoskeletal History: quadraplegic Neurological History: Reports: Other (See Below) Other Neuro History: 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 Psychiatric History: Reports: None Endocrine/Metabolic History: Reports: Obesity/BMI 30+, Other (See Below) Other Endocrine/Metabolic History: hyperglycemia Hematologic History: Reports: None Immunologic History: Reports: None Oncologic (Cancer) History: Reports: None Dermatologic History: Reports: Psoriasis Other Dermatologic History: skin tags, hidradenitis - Infectious Disease History Infectious Disease History: Reports: Chicken Pox - Past Surgical History HEENT Surgical History: Reports: Myringotomy w Tube(s), Tonsillectomy Cardiovascular Surgical History: Reports: Pacer, Other (See Below) Other Cardiovascular Surgeries/Procedures: ablation GI Surgical History: Reports: Colonoscopy, EGD, Hernia Repair/Other Other GI Surgeries/Procedures: hernia repair Male Surgical History: Reports: Other (See Below) Other Male Surgeries/Procedures: patient has a [place] (condom) catheter. Social & Family History - Family History Family Medical History: Noncontributory - Tobacco Use Smoking Status *Q: Never Smoker Years of Tobacco use: 5 Packs/Tins Daily: 0.2 Used Tobacco, but Quit: No Second Hand Smoke Exposure: No - Caffeine Use Caffeine Use: Reports: Coffee - Alcohol Use Days Per Week of Alcohol Use: 7 Number of Drinks Per Day: 1 Total Drinks Per Week: 7 - Recreational Drug Use Recreational Drug Use: No Drug Use in Last 12 Months: No - Living Situation & Occupation Living situation: Reports: Occupation: Employed Review of Systems - Review of Systems Review Of Systems: See Below Constitutional: Reports: Other. Denies: Chills, Diaphoresis, Fever Ears: Reports: No Symptoms Nose: Reports: No Symptoms Mouth/Throat: Reports: No Symptoms Respiratory: Denies: Shortness of Breath, Wheezing, Pleuritic Chest Pain, Cough , Sputum Cardiovascular: Reports: Other (Patient is atrial paced rhythm at 70/m.) GI/Abdominal: Reports: Other (Patient is on a bowel regime every other day which works well for his bowels to work.). Denies: Abdominal Pain, Bloody Stool Genitourinary: Reports: Other (Wears a condom catheter chronically and is frequent urinary tract infections. Known to have an enlarged prostate gland.) Musculoskeletal: Reports: Muscle Pain (Due to spasticity which is been much worse the last couple of months.) Skin: Reports: Other (Does have a chronic wound in the mid right perineum that was done in March last year by Dr. Wilks. This is not draining any fluid or pus to the 's knowledge and she just dresses it daily.) Neurological: Reports: Other (Quadriplegia. Is confined to wheelchair or bed.) Psychiatric: Reports: No Symptoms ED EXAM, GENERAL - Physical Exam Exam: See Below Exam Limited By: No Limitations General Appearance: Alert, WD/WN, Anxious (Mild to moderate anxiety.) Eye Exam: Bilateral Eye: Normal Inspection Nose: Normal Inspection, Normal Mucosa Throat/Mouth: Normal Inspection, Normal Lips, Normal Oropharynx Head: Atraumatic, Normocephalic Neck: Normal Inspection, Supple, Non-Tender, Full Range of Motion, Other (Well- healed midline surgical scar.). No: Lymphadenopathy (L), Lymphadenopathy (R) Respiratory/Chest: No Respiratory Distress, Lungs Clear, Normal Breath Sounds Cardiovascular: Regular Rate, Rhythm (Atrial paced rhythm at 70/m on monitor. This is confirmed by ECG as well.), No Gallop, No Murmur, No Rub. No: Normal Peripheral Pulses Peripheral Pulses: 1+: Posterior Tibial (L), Posterior Tibial (R), Dorsalis Pedis (L), Dorsalis Pedis (R) GI/Abdominal: Soft, Non-Tender, No Organomegaly, Distended, Other (Abdomen is protuberant and mildly obese. Stimulation of the abdomen does precipitate muscle spasticity both in the abdominal wall in both legs.) (Male) Exam: Other (Wearing a condom catheter. The end of the penis is slightly erythematous.) Rectal (Males) Exam: Other (Patulous anus. Evidence of multiple old external hemorrhoids. There is a surgical incision just to the right of the midline in the perineum that it was placed to drain a hematoma in March of last year. Was left to heal by secondary intention has not completely healed. It continues to drain a small amount of serosanguineous material and the prefers to keep a bandage on it daily.) Extremities: Other (2+ pitting edema both lower extremities. Spasticity of the lower extremities on palpation or touch.) Neurological: Alert, Oriented, CN II-XII Intact, Normal Cognition, Other ( Quadriplegia for many years.) Psychiatric: Normal Affect, Normal Mood Skin Exam: Warm, Dry, Intact, Normal Color, No Rash EKG INTERPRETATION EKG Date: 11/30/17 Time: 16:40 Rhythm: Other (Atrial paced rhythm at 70/m.) Rate (Beats/Min): 70 [place]: Normal P-Wave: Enlarged QRS: Other (Nonspecific intraventricular conduction delay.) ST-T: Normal QT: Normal EKG Interpretation Comments: Abnormal ECG. Course - Vital Signs Last Recorded V/S: Last Vital Signs Temp 36.7 C 11/30/17 16:07 Pulse 74 11/30/17 16:07 Resp 18 11/30/17 16:07 BP 187/129 H 11/30/17 16:07 Pulse Ox 96 11/30/17 16:07 - Orders/Labs/Meds Orders: Active Orders 24 hr Category Date Time Status EKG Documentation Completion [RC] STAT Care 11/30/17 16:34 Active Labs: Laboratory Tests 11/30/17 11/30/17 11/30/17 Range/Units 17:10 17:10 17:10 WBC 8.37 (4.23-9.07) K/mm3 RBC 4.83 (4.63-6.08) M/mm3 Hgb 15.2 (13.7-17.5) gm/L Hct 45.3 (40.1-51.0) % MCV 93.8 H (79.0-92.2) fl MCH 31.5 (25.7-32.2) pg MCHC 33.6 (32.2-35.5) g/dl RDW Std Deviation 49.6 H (35.1-43.9) fL Plt Count 199 (163-337) K/mm3 MPV 10.9 (9.4-12.3) fl Neutrophils % (Manual) 70 H (40-60) % Band Neutrophils % 0 (0-10) % Lymphocytes % (Manual) 11 L (20-40) % Atypical Lymphs % 0 % Monocytes % (Manual) 8 (2-10) % Eosinophils % (Manual) 11 H (0.8-7.0) % Basophils % (Manual) 0 L (0.2-1.2) Platelet Estimate Adequate RBC Morph Comment Normal ESR 9 (0-15) mm/hr Sodium 137 (136-145) mEq/L Potassium 4.1 (3.5-5.1) mEq/L Chloride 102 (98-107) mEq/L Carbon Dioxide 27 (21-32) mEq/L Anion Gap 12.1 (5-15) BUN 9 (7-18) mg/dL Creatinine 0.7 (0.7-1.3) mg/dL Est Cr Clr Drug Dosing 159.59 mL/min Estimated GFR (MDRD) > 60 (>60) mL/min BUN/Creatinine Ratio 12.9 L (14-18) Glucose 110 H (74-106) mg/dL Calcium 9.1 (8.5-10.1) mg/dL Total Bilirubin 0.8 (0.2-1.0) mg/dL AST 19 (15-37) U/L ALT 29 (16-63) U/L Alkaline Phosphatase 51 (46-116) U/L C-Reactive Protein 1.0 (<1.0) mg/dL Total Protein 7.0 (6.4-8.2) g/dl Albumin 3.7 (3.4-5.0) g/dl Globulin 3.3 gm/dL Albumin/Globulin Ratio 1.1 (1-2) Digoxin 0.5 L (0.9-2.0) ng/mL - Radiology Interpretation Free Text/Narrative:: 52-year-old male who is a quadriplegic sent to the ED for further evaluation of possible osteomyelitis involving his ischial tuberosities bilaterally. Patient had a CT of his chest abdomen pelvis carried out by primary care physician yesterday at [facility]. The report came back this afternoon suggesting that he might have a chronic osteomyelitis in his ischial tuberosities due to sacral decubiti. He was therefore sent to the ED for further evaluation .Upon my assessment he has no signs or symptoms of chronic malnutrition or chronic infection such as intermittent fever chills night sweats loss of appetite etc. He was diagnosed with a urinary tract infection which is not uncommon for him due to chronic condom catheter use. He was Bactrim double strength discontinued and he was placed on Levaquin 500 milligrams once a day yesterday. Cultures not yet back. Patient does have an open laceration or surgical wound to his right side of his perineum where he had a hematoma drained by Dr. Wilks in March of last year. He had hemorrhoidectomy carried out at the same time. He has had no active sacral decubiti for many years. Plan routine labs to include a CRP and sedimentation rate. The films are supposed to [facility] and I will review them. - Re-Assessments/Exams Free Text/Narrative Re-Assessment/Exam: 11/30/17 17:22 upon my review of the CT the chest abdomen and pelvis chest is essentially normal abdomen is essentially normal. He does have an enlarged urinary bladder with thickened wall suggestive of either chronic obstructive pattern or an infection causing acute cystitis. In the pelvis he has severe dystrophic desiccation of the greater trochanteric process particularly noted on the right side. There is evidence of [id number] in both hips . There is loss of bone in the acetabulum on both the left and right side but much more prominent on the left as compared to the right. I believe these changes are likely to be degenerative in origin versus infected. I will also have Dr. Robledo , our radiologist review these films. 11/30/17 18:09 Labs reveal a normal white count at 8.37 with 70% neutrophils and no bands reported. Hemoglobin is 15.2 with hematocrit of 45.3. Platelet count is 199,000. Sodium is 137 with a potassium of 4.1. Chloride is 102 with a bicarbonate 27. Anion gap is 12.1. BUNs 9 creatinine is 0.7. Then 60. Glucose is 110. Calcium is 9.1 with a bilirubin of 0.8 normal renal function otherwise. Particular alk phosphatase is only 51. C-reactive protein is 1.0. Weight is only 9. Digoxin level 0.5. Therefore labs do not support a diagnosis of osteomyelitis. Of note I did discuss the CT of the pelvis with Dr. Robledo. He agrees that these changes are likely due to degenerative changes versus osteomyelitis. He was very confident in his diagnosis. I would concur with this. Patient and therefore so advised that there is no clinical evidence of osteomyelitis. I will admit there are still significant abnormalities in the ischial tuberosities on CT exam bilaterally much worse on the left as compared to the right. Just above these appear to be primarily degenerative in origin. Patient will therefore be discharged to home. Departure - Departure Time of Disposition: 18:21 Disposition: Home, Self-Care 01 Condition: Fair Clinical Impression: Chronic incomplete spastic tetraplegia, Tinea cruris Urinary tract infection Qualifiers: Urinary tract infection type: site unspecified Hematuria presence: with hematuria Qualified Code(s): N39.0 - Urinary tract infection, site not specified - Discharge Information Prescriptions: Terbinafine [LamISIL AT] 30 gm TP BID #1 tube Instructions: Urinary Tract Infection, Adult Referrals: Yary Fung MD [Primary Care Provider] - Forms: ED Department Discharge Additional Instructions: Evaluation carried out in the emergency him today in regards to findings of an on CT exam done yesterday of abnormalities in her ischial tuberosity of the pelvis on both sides. Initial report by the radiologist that of suspect infection in the bone called osteomyelitis. Therefore he will brought to the ED for further evaluation in this regard. On my assessment of the CT exam it shows extensive degenerative arthritis in your hip joints bilaterally and destruction of the acetabulum which is the socket that the hip bone fits into on both sides. Cover this destruction appears to be degenerative in origin versus infective. I discussed this with our radiologist and he concurs with my assessment. Lab work was done to rule out an infective process. It too was revealed a normal white count and differential. It revealed a normal sedimentation rate at 9 and a normal CRP of 1.0. These findings reveal the them to be normal and in no way suggest evidence of a bone infection. The rash in your groin is difficult to need for us which is a fungal infection usually from candidiasis. Suggest picking up some Lamisil cream [id number] and applying this to the area once or twice daily until gone. Continue current Levaquin 500 mg once daily for urinary tract infection as started yesterday for UTI. Follow-up with Dr. Fung if any further problems occur. - My Orders Last 24 Hours: My Active Orders 11/30/17 16:34 EKG Documentation Completion [RC] STAT - Assessment/Plan Last 24 Hours: My Active Orders 11/30/17 16:34 EKG Documentation Completion [RC] STAT
== END 2017-11-30 18:40 | disposition home or self-care (01) ==
LOC: JD.ED 15:46
DX: G82.52 Quadriplegia, C1-C4 incomplete (principal); B35.6 Tinea cruris; N39.0 Urinary tract infection, site not specified; Z88.1 Allergy status to other antibiotic agents; Z79.82 Long term (current) use of aspirin; I10 Essential (primary) hypertension; E78.00 Pure hypercholesterolemia, unspecified; I48.91 Unspecified atrial fibrillation; Z98.890 Other specified postprocedural states; Z72.0 Tobacco use
CPT/HCPCS: 36415; 80053; 80162; 85025; 85652; 86140; 93005; 99284-25; 99285

== ENCOUNTER 2019-04-08 20:17 | Emergency (ER) | payer BC ==
[2019-04-08 20:30] VITALS: BP 210/143
[2019-04-08] MEDS ORDERED: Sodium Chloride 0.9% 10 ML Syringe FLUSH PRN (22:25)
[2019-04-08] MEDS ORDERED: Sodium Chloride 0.9% 1,000 ML IV SCH (22:30)
--- NOTE | 2019-04-08 23:16 | EDM.PDOC ---
ED HPI GENERAL MEDICAL PROBLEM - General Chief Complaint: Genitourinary Problem Stated Complaint: SWEATING Time Seen by Provider: 04/08/19 20:43 Source of Information: Reports: Patient, RN Notes Reviewed - History of Present Illness INITIAL COMMENTS - FREE TEXT/NARRATIVE: 53-year-old male became dizzy, diaphoretic at home a couple of hours ago. He is paraplegic. The urine in his catheter did seem somewhat dark yellow and concentrated. It had been draining okay earlier today. He does not have sensation of the abdomen or lower body. No nausea vomiting fever or chills. He does use an external condom type catheter. Prior to my exam on arrival to ED bladder scan was done showing about 1700 mL of urine in the bladder. Ferrara catheter was placed and draining prior to my arrival and exam. - Related Data Allergies Allergy/AdvReac Type Severity Reaction Status Date / Time amoxicillin Allergy Cannot Verified 04/08/19 20:30 Remember Home Meds: Home Meds Alpha Lipoic Acid 600 mg PO DAILY 03/21/16 [History] Aspirin [Halfprin] 81 mg PO DAILY 03/21/16 [History] Baclofen 20 mg PO QID 03/21/16 [History] Chromium Picolinate 500 mcg PO DAILY 03/21/16 [History] Fish Oil/[place]-3 Fatty Acids [Fish Oil 1,000 MG] 1,500 mg PO BID 03/21/16 [ History] Multivitamin with Minerals [Jacek Multivitamin with Mineral] 1 tab PO DAILY 03/21 [History] Polyethylene Glycol 3350 [MiraLAX] 17 gm PO Q48H 03/21/16 [History] Sennosides/Docusate Sodium [Senna-S Tablet] 2 each PO Q48H 03/21/16 [History] Carvedilol 37.5 mg PO BID 02/27/17 [History] Cholecalciferol (Vitamin D3) [Vitamin D3] 2,000 unit PO DAILY 02/27/17 [History] Digoxin [Lanoxin] 0.25 mg PO DAILY 02/27/17 [History] Terazosin HCl [Terazosin] 5 mg PO BEDTIME 05/16/17 [History] Acetylcarnitine [Acetyl l-Carnitine] 1,000 mg PO DAILY 11/30/17 [History] Magnesium Oxide 400 mg PO BID 11/30/17 [History] Sodium Phosphate,[place]-Dibasic [Enema Ready To Use] 1 dose RECTAL ASDIRECTED [History] Turmeric Root Extract [Turmeric] 1,050 mg PO DAILY 11/30/17 [History] Rosuvastatin [Crestor] 10 mg PO DAILY 04/08/19 [History] Ubidecarenone [COQ-10] 200 mg PO DAILY 04/08/19 [History] carBAMazepine [Carbamazepine] 300 mg PO BID 04/08/19 [History] levoFLOXacin [Levaquin] 500 mg PO DAILY 2 Days #2 tab 04/08/19 [Rx] Past Medical History HEENT History: Reports: Impaired Vision, Other (See Below) Other HEENT History: glasses Cardiovascular History: Reports: Afib, High Cholesterol, Hypertension, Pacemaker Other Cardiovascular History: sick sinus syndrome prior to pacemaker placement Respiratory History: Reports: Sleep Apnea, Other (See Below) Other Respiratory History: restrictive ventillary defect, pulmonary collapse, restrictive lung disease, partial lung removal Gastrointestinal History: Reports: Hemorrhoids, Other (See Below) Other Gastrointestinal History: tubular adenoma, hematochezia Genitourinary History: Reports: Other (See Below) Other Genitourinary History: chronic indwelling catheter, frequent UTIs 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: Reports: None Musculoskeletal History: Reports: None Other Musculoskeletal History: quadraplegic Neurological History: Reports: Other (See Below) Other Neuro History: 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 Psychiatric History: Reports: None Endocrine/Metabolic History: Reports: Obesity/BMI 30+, Other (See Below) Other Endocrine/Metabolic History: hyperglycemia Hematologic History: Reports: None Immunologic History: Reports: None Oncologic (Cancer) History: Reports: None Dermatologic History: Reports: Psoriasis Other Dermatologic History: skin tags, hidradenitis - Infectious Disease History Infectious Disease History: Reports: Chicken Pox - Past Surgical History HEENT Surgical History: Reports: Myringotomy w Tube(s), Tonsillectomy Cardiovascular Surgical History: Reports: Pacer, Other (See Below) Other Cardiovascular Surgeries/Procedures: ablation GI Surgical History: Reports: Colonoscopy, EGD, Hernia Repair/Other Other GI Surgeries/Procedures: hernia repair Male Surgical History: Reports: Other (See Below) Other Male Surgeries/Procedures: patient has a [place] (condom) catheter. Social & Family History - Family History Family Medical History: Noncontributory - Tobacco Use Smoking Status *Q: Never Smoker - Caffeine Use Caffeine Use: Reports: Coffee - Recreational Drug Use Recreational Drug Use: No - Living Situation & Occupation Living situation: Reports: Occupation: Employed ED ROS GENERAL - Review of Systems Review Of Systems: See Below Constitutional: Reports: Diaphoresis. Denies: Fever, Chills HEENT: Reports: No Symptoms Respiratory: Denies: Shortness of Breath, Hemoptysis GI/Abdominal: Denies: Abdominal Pain, Nausea, Vomiting : Denies: Hematuria Musculoskeletal: Reports: No Symptoms ED EXAM, RENAL/ - Physical Exam Exam: See Below General Appearance: Alert, No Apparent Distress, Other (At time of my exam Ferrara catheter had been placed, diaphoresis gone, resting comfortably) Throat/Mouth: Normal Inspection, Normal Oropharynx Head: Atraumatic Neck: Supple Respiratory/Chest: No Respiratory Distress, Lungs Clear, Normal Breath Sounds Cardiovascular: Regular Rate, Rhythm GI/Abdominal: Other (Moderate distention). No: Tender Extremities: No: Pedal Edema Neurological: Alert, Oriented Skin Exam: Warm, Dry, Normal Color Course - Vital Signs Last Recorded V/S: Last Vital Signs Temp 96.8 F 04/08/19 20:27 Pulse 77 04/08/19 20:27 Resp 17 04/08/19 20:27 BP 210/143 H 04/08/19 20:27 Pulse Ox 99 04/08/19 20:27 - Orders/Labs/Meds Orders: Active Orders 24 hr Category Date Time Status Peripheral IV Care [RC] . DIRECTED Care 04/08/19 22:26 Active Sodium Chloride 0.9% [Normal Saline] 1,000 ml Med 04/08/19 22:30 Active IV ONETIME Sodium Chloride 0.9% [Saline Flush] Med 04/08/19 22:25 Active 10 ml FLUSH ASDIRECTED PRN Peripheral IV Insertion Adult [OM.PC] Stat Oth 04/08/19 22:24 Ordered Medication Orders Sodium Chloride (Normal Saline) 1,000 mls @ 999 mls/hr IV ONETIME [facility] Last Admin: 04/08/19 22:30 Dose: 999 mls/hr Sodium Chloride (Saline Flush) 10 ml FLUSH ASDIRECTED PRN PRN Reason: Keep Vein Open Last Admin: 04/08/19 22:31 Dose: 10 ml Labs: Laboratory Tests 04/08/19 04/08/19 04/08/19 Range/Units 20:15 20:15 20:50 WBC 7.49 (4.23-9.07) K/mm3 RBC 4.53 L (4.63-6.08) M/mm3 Hgb 13.3 L D (13.7-17.5) gm/L Hct 39.2 L (40.1-51.0) % MCV 86.5 D (79.0-92.2) fl MCH 29.4 (25.7-32.2) pg MCHC 33.9 (32.2-35.5) g/dl RDW Std Deviation 40.4 (35.1-43.9) fL Plt Count 282 D (163-337) K/mm3 MPV 10.1 (9.4-12.3) fl Neut % (Auto) 68.6 H (34.0-67.9) % Lymph % (Auto) 19.4 L (21.8-53.1) % [place] % (Auto) 8.5 (5.3-12.2) % Eos % (Auto) 3.3 (0.8-7.0) Baso % (Auto) 0.1 (0.1-1.2) % Neut # (Auto) 5.13 (1.78-5.38) K/mm3 Lymph # (Auto) 1.45 (1.32-3.57) K/mm3 [place] # (Auto) 0.64 (0.30-0.82) K/mm3 Eos # (Auto) 0.25 (0.04-0.54) K/mm3 Baso # (Auto) 0.01 (0.01-0.08) K/mm3 Sodium 131 L (136-145) mEq/L Potassium 3.9 (3.5-5.1) mEq/L Chloride 95 L (98-107) mEq/L Carbon Dioxide 28 (21-32) mEq/L Anion Gap 11.9 (5-15) BUN 11 (7-18) mg/dL Creatinine 0.7 (0.7-1.3) mg/dL Est Cr Clr Drug Dosing 157.77 mL/min Estimated GFR (MDRD) > 60 (>60) mL/min BUN/Creatinine Ratio 15.7 (14-18) Glucose 113 H (74-106) mg/dL Calcium 9.3 (8.5-10.1) mg/dL Total Bilirubin 0.4 (0.2-1.0) mg/dL AST 21 (15-37) U/L ALT 46 (16-63) U/L Alkaline Phosphatase 79 (46-116) U/L Total Protein 6.7 (6.4-8.2) g/dl Albumin 4.0 (3.4-5.0) g/dl Globulin 2.7 gm/dL Albumin/Globulin Ratio 1.5 (1-2) Urine Color Yellow (Yellow) Urine Appearance Clear (Clear) Urine pH 8.0 (5.0-8.0) Ur Specific [place] 1.015 (1.005-1.030) Urine Protein Negative (Negative) Urine Glucose (UA) Negative (Negative) Urine Ketones Negative (Negative) Urine Occult Blood Negative (Negative) Urine Nitrite Negative (Negative) Urine Bilirubin Negative (Negative) Urine Urobilinogen 0.2 (0.2-1.0) Ur Leukocyte Esterase Negative (Negative) Urine RBC Not seen (0-5) /hpf Urine WBC Not seen (0-5) /hpf Ur Squamous Epith Cells 0-5 (0-5) /hpf Amorphous Sediment Moderate H (NOT SEEN) /hpf Urine Bacteria Not seen (FEW) /hpf Urine Mucus Rare (FEW) /hpf Meds: Medications Generic Name Dose Route Start Last Admin Trade Name Freq PRN Reason Stop Dose Admin Sodium Chloride 1,000 mls @ 999 mls/hr 04/08/19 22:30 04/08/19 22:30 Normal Saline IV 999 mls/hr ONETIME [facility] Administration Sodium Chloride 10 ml 04/08/19 22:25 04/08/19 22:31 Saline Flush FLUSH 10 ml ASDIRECTED PRN Administration Keep Vein Open Discontinued Medications Generic Name Dose Route Start Last Admin Trade Name Freq PRN Reason Stop Dose Admin Levofloxacin 500 mg 04/08/19 23:26 Levaquin PO 04/08/19 23:27 ONETIME ONE - Re-Assessments/Exams Free Text/Narrative Re-Assessment/Exam: 04/08/19 23:36 Ferrara catheter had artery been placed prior to my exam of patient. Drained about 800 mils of relatively clear urine. White blood count, chemistries didn' t come back normal. UA did not show any sign of infection. Catheter was clamped after about 800 mils out and then intermittently clamped to allow for further drainage. And I did go back in to check on patient almost 2 hours after arrival and is resting comfortably but became aware checking blood pressure monitor that his blood pressures have been dropping with most recent blood pressure 87/ 65. 4 IV was started and IV normal saline infused. Now a short time ago his blood pressure is up into the 130s systolic after over 400 mils normal saline infused. I discussed with patient and his the advisability of leaving the catheter in for a couple of days to allow his bladder to shrink down and establish more normal tone. Discharge instructions as documented. Departure - Departure Time of Disposition: 23:13 Disposition: Home, Self-Care 01 Condition: Fair Clinical Impression: Urinary retention - Discharge Information Prescriptions: levoFLOXacin [Levaquin] 500 mg PO DAILY 2 Days #2 tab Instructions: Acute Urinary Retention, Male, [id number] Referrals: Yary Fung MD [Primary Care Provider] - Forms: ED Department Discharge Additional Instructions: Leave ferrara catheter in until , you can have that taken out at the clinic or if that does not work return to ED to have that done. Continue to drink plenty of water to maintain hydration, continue current medications as prescribed, follow-up clinic if having any further difficulties or return to ED as needed if symptoms reoccurring or worsening in any way. - My Orders Last 24 Hours: My Active Orders 04/08/19 22:24 Peripheral IV Insertion Adult [OM.PC] Stat 04/08/19 22:25 Sodium Chloride 0.9% [Saline Flush] 10 ml FLUSH ASDIRECTED PRN 04/08/19 22:26 Peripheral IV Care [RC] . DIRECTED 04/08/19 22:30 Sodium Chloride 0.9% [Normal Saline] 1,000 ml IV ONETIME - Assessment/Plan Last 24 Hours: My Active Orders 04/08/19 22:24 Peripheral IV Insertion Adult [OM.PC] Stat 04/08/19 22:25 Sodium Chloride 0.9% [Saline Flush] 10 ml FLUSH ASDIRECTED PRN 04/08/19 22:26 Peripheral IV Care [RC] . DIRECTED 04/08/19 22:30 Sodium Chloride 0.9% [Normal Saline] 1,000 ml IV ONETIME
[2019-04-08] MEDS ORDERED: Levofloxacin 250 MG Tab PO ONE (23:26)
== END 2019-04-08 23:45 | disposition home or self-care (01) ==
LOC: JD.ED 20:17
DX: R33.9 Retention of urine, unspecified (principal); I48.91 Unspecified atrial fibrillation; E78.00 Pure hypercholesterolemia, unspecified; Z79.899 Other long term (current) drug therapy; Z79.82 Long term (current) use of aspirin; Z88.1 Allergy status to other antibiotic agents; Z95.0 Presence of cardiac pacemaker
CPT/HCPCS: 36415; 51702; 80053; 81001; 85025; 99283; 99284; A9270-GY; J7040

== ENCOUNTER 2019-04-09 11:47 | Emergency (ER) | payer BC ==
[2019-04-09 12:00] VITALS: BP 136/89
--- NOTE | 2019-04-09 12:47 | EDM.PDOC ---
ED HPI GENERAL MEDICAL PROBLEM - General Chief Complaint: Genitourinary Problem Stated Complaint: BLOOD IN CATHETER BAG Time Seen by Provider: 04/09/19 12:40 Source of Information: Reports: Patient, Old Records History Limitations: Reports: No Limitations - History of Present Illness INITIAL COMMENTS - FREE TEXT/NARRATIVE: 53-year-old male sent over from walk in clinic for hematuria. Patient is a paraplegic. He was seen in the ER last night and found to have urinary retention of around 1500 mils. Eighth indolently catheter was placed. Approximately 800 mils was evacuated from his bladder. A UA and labs were done which did not show any signs of infection. went home without any problems. Last night he developed hematuria. states that she is not appreciated any clots and he has continued to drain. Presented to the walk-in clinic today and was sent over to us for care. Patient's primary care provider is Dr. Fung; he has an appointment at the old catheter removed tomorrow. patient reports he's had Philip catheters in the past he has developed hematuria. States that time since that a Philip catheter. - Related Data Allergies Allergy/AdvReac Type Severity Reaction Status Date / Time amoxicillin Allergy Cannot Verified 04/09/19 11:54 Remember Home Meds: Home Meds Alpha Lipoic Acid 600 mg PO DAILY 03/21/16 [History] Aspirin [Halfprin] 81 mg PO DAILY 03/21/16 [History] Baclofen 20 mg PO QID 03/21/16 [History] Chromium Picolinate 500 mcg PO DAILY 03/21/16 [History] Fish Oil/[place]-3 Fatty Acids [Fish Oil 1,000 MG] 1,500 mg PO BID 03/21/16 [ History] Multivitamin with Minerals [Jacek Multivitamin with Mineral] 1 tab PO DAILY 03/21 [History] Polyethylene Glycol 3350 [MiraLAX] 17 gm PO Q48H 03/21/16 [History] Sennosides/Docusate Sodium [Senna-S Tablet] 2 each PO Q48H 03/21/16 [History] Carvedilol 37.5 mg PO BID 02/27/17 [History] Cholecalciferol (Vitamin D3) [Vitamin D3] 2,000 unit PO DAILY 02/27/17 [History] Digoxin [Lanoxin] 0.25 mg PO DAILY 02/27/17 [History] Terazosin HCl [Terazosin] 5 mg PO BEDTIME 05/16/17 [History] Acetylcarnitine [Acetyl l-Carnitine] 1,000 mg PO DAILY 11/30/17 [History] Magnesium Oxide 400 mg PO BID 11/30/17 [History] Sodium Phosphate,[place]-Dibasic [Enema Ready To Use] 1 dose RECTAL ASDIRECTED [History] Turmeric Root Extract [Turmeric] 1,050 mg PO DAILY 11/30/17 [History] Rosuvastatin [Crestor] 10 mg PO DAILY 04/08/19 [History] Ubidecarenone [COQ-10] 200 mg PO DAILY 04/08/19 [History] carBAMazepine [Carbamazepine] 300 mg PO BID 04/08/19 [History] levoFLOXacin [Levaquin] 500 mg PO DAILY 2 Days #2 tab 04/08/19 [Rx] Past Medical History HEENT History: Reports: Impaired Vision, Other (See Below) Other HEENT History: glasses Cardiovascular History: Reports: Afib, High Cholesterol, Hypertension, Pacemaker Other Cardiovascular History: sick sinus syndrome prior to pacemaker placement Respiratory History: Reports: Sleep Apnea, Other (See Below) Other Respiratory History: restrictive ventillary defect, pulmonary collapse, restrictive lung disease, partial lung removal Gastrointestinal History: Reports: Hemorrhoids, Other (See Below) Other Gastrointestinal History: tubular adenoma, hematochezia Genitourinary History: Reports: Other (See Below) Other Genitourinary History: chronic indwelling catheter, frequent UTIs 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 Musculoskeletal History: Reports: None Other Musculoskeletal History: quadraplegic Neurological History: Reports: Other (See Below) Other Neuro History: 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 Psychiatric History: Reports: None Endocrine/Metabolic History: Reports: Obesity/BMI 30+, Other (See Below) Other Endocrine/Metabolic History: hyperglycemia Hematologic History: Reports: None Immunologic History: Reports: None Oncologic (Cancer) History: Reports: None Dermatologic History: Reports: Psoriasis Other Dermatologic History: skin tags, hidradenitis - Infectious Disease History Infectious Disease History: Reports: Chicken Pox - Past Surgical History HEENT Surgical History: Reports: Myringotomy w Tube(s), Tonsillectomy Cardiovascular Surgical History: Reports: Pacer, Other (See Below) Other Cardiovascular Surgeries/Procedures: ablation GI Surgical History: Reports: Colonoscopy, EGD, Hernia Repair/Other Other GI Surgeries/Procedures: hernia repair Male Surgical History: Reports: Other (See Below) Other Male Surgeries/Procedures: patient has a [place] (condom) catheter. Social & Family History - Family History Family Medical History: Noncontributory - Tobacco Use Smoking Status *Q: Never Smoker Second Hand Smoke Exposure: No - Caffeine Use Caffeine Use: Reports: None - Recreational Drug Use Recreational Drug Use: No - Living Situation & Occupation Living situation: Reports: Occupation: Employed ED ROS GENERAL - Review of Systems Review Of Systems: ROS reveals no pertinent complaints other than HPI. ED EXAM, RENAL/ - Physical Exam Exam: See Below Exam Limited By: No Limitations General Appearance: Alert, WD/WN, No Apparent Distress, Other (in wheelchair, paraplegic ) Respiratory/Chest: No Respiratory Distress (Male) Exam: Other (leg bag to the left leg shows gross hematura, actively draining, no large clots present) Neurological: Alert, Oriented, Normal Cognition Psychiatric: Normal Affect, Normal Mood Skin Exam: Warm, Dry, Normal Color Course - Vital Signs Last Recorded V/S: Last Vital Signs Temp 97.8 F 04/09/19 11:58 Pulse 73 04/09/19 11:58 Resp 16 04/09/19 11:58 BP 136/89 04/09/19 11:58 Pulse Ox 97 04/09/19 11:58 - Re-Assessments/Exams Free Text/Narrative Re-Assessment/Exam: 04/09/19 13:[address] Hensley, recommended against changing the catheter. Recommended leaving the catheter in place and following up tomorrow as planned. Checked on the patient. He still continues to have blood in his urine but minimal if any clots. Draining well. Will discharge home. Discharge instructions as documented. Departure - Departure Time of Disposition: 13:22 Disposition: Home, Self-Care 01 Condition: Good Clinical Impression: Philip catheter in place, Hematuria - Discharge Information *PRESCRIPTION DRUG MONITORING PROGRAM REVIEWED*: No *COPY OF PRESCRIPTION DRUG MONITORING REPORT IN PATIENT DARWIN: No Instructions: Hematuria, Adult Referrals: Yary Fung MD [Primary Care Provider] - Forms: ED Department Discharge Additional Instructions: Follow-up with PCP tomorrow as planned. Drink plenty of fluids. Please return to the ER should your symptoms ballard or worsen, in particular we would like to see you if the catheter is clogged or you are passing large clots.
== END 2019-04-09 13:45 | disposition home or self-care (01) ==
LOC: JD.ED 11:47
DX: R31.9 Hematuria, unspecified (principal); Z46.6 Encounter for fitting and adjustment of urinary device; I10 Essential (primary) hypertension; E78.00 Pure hypercholesterolemia, unspecified; Z88.1 Allergy status to other antibiotic agents; Z79.899 Other long term (current) drug therapy; Z79.82 Long term (current) use of aspirin
CPT/HCPCS: 99283

== ENCOUNTER 2021-11-28 20:54 | Emergency (ER) | payer OTHER ==
[2021-11-28] MEDS ORDERED: Albuterol/Ipratropium 3.0-0.5 MG/3 ML Neb Soln NEB ONE (21:41)
[2021-11-28] MEDS ORDERED: Sodium Chloride 0.9% 1,000 ML IV ONE (23:45)
[2021-11-29] MEDS: Sodium Chloride 0.9% 10 ML Syringe FLUSH PRN ×2 (00:02→00:53)
[2021-11-29] MEDS ORDERED: Sodium Chloride 0.9% 10 ML SDV FLUSH ONE (00:52)
[2021-11-29] MEDS ORDERED: Iopamidol 755 Mg/ML 100 ML Bottle IVPUSH ONE (00:52)
[2021-11-29] MEDS ORDERED: Sodium Chloride 0.9% 100 ML IV SCH (01:00)
[2021-11-29] MEDS ORDERED: Apixaban 5 MG Tab PO ONE (01:54)
[2021-11-29] MEDS ORDERED: Albuterol 6.7 GM Inhaler INH ONE (02:03)
[2021-11-29 02:16] VITALS: BP 101/70; PULSE 70
== END 2021-11-29 02:40 | disposition home or self-care (01) ==
LOC: JD.ED 20:54
DX: U07.1 COVID-19 (principal); I26.99 Other pulmonary embolism without acute cor pulmonale; D64.89 Other specified anemias; I48.91 Unspecified atrial fibrillation; E78.00 Pure hypercholesterolemia, unspecified; I10 Essential (primary) hypertension; E66.9 Obesity, unspecified; Z88.0 Allergy status to penicillin; Z79.82 Long term (current) use of aspirin; Z79.899 Other long term (current) drug therapy
CPT/HCPCS: 36415; 71045; 71275; 80053; 83605; 85025; 85379; 85610; 85730; 86140; 94640; 99285; A9270; J7030; Q9967; J7620-GY

== ENCOUNTER 2022-07-21 11:32 | Emergency (ER) | payer OTHER ==
[2022-07-21 11:54] VITALS: BP 190/117; PULSE 135
[2022-07-21] MEDS ORDERED: Sodium Chloride 0.9% 10 ML Syringe FLUSH PRN (12:04)
[2022-07-21 13:39] LABS: ESTIMATED GFR 113 mL/min (>60)
[2022-07-21] MEDS ORDERED: Levofloxacin 750 MG Tab PO ONE (14:22)
== END 2022-07-21 15:04 | disposition home or self-care (01) ==
LOC: JD.ED 11:32
DX: N39.0 Urinary tract infection, site not specified (principal); R33.9 Retention of urine, unspecified; I10 Essential (primary) hypertension; I48.91 Unspecified atrial fibrillation; E78.00 Pure hypercholesterolemia, unspecified; E66.9 Obesity, unspecified; Z68.34 Body mass index [BMI] 34.0-34.9, adult; Z79.899 Other long term (current) drug therapy
CPT/HCPCS: 36415; 51701; 80053; 81001; 83605; 85007; 85027; 85610; 86140; 87040; 87086; 99284; A9270

== ENCOUNTER 2023-01-31 09:06 | Day surgery (SDC) | payer OTHER ==
[~2023-01-31 09:06] MED LIST changes: +Lidocaine 1%/Sod Bicarbonate in NS 8.4% 1 ML Syringe IDERM PRN; -Lidocaine 1%/Sod Bicarbonate in NS 8.4% 1 ML Syringe IV PRN; +Sodium Chloride 0.9% 10 ML Syringe FLUSH SCH; -cefOXitin 2 GM in Premix Bag 1 BAG IV SCH
[2023-01-31 09:47] VITALS: PULSE 74
[2023-01-31] MEDS ORDERED: Bupivacaine 0.5% 30 ML SDV ONE (10:00)
[2023-01-31] MEDS ORDERED: Lidocaine 1% with EPINEPHrine 1:100,000 20 ML MDV ONE (10:00)
[2023-01-31] MEDS ORDERED: Propofol 200 MG/20 ML SDV ONE ×4 (10:05→11:19)
[2023-01-31] MEDS ORDERED: Lidocaine 1% 4 ML ONE (10:10)
[2023-01-31] MEDS ORDERED: Lactated Ringers 1,000 ML ONE (10:20)
[2023-01-31] MEDS ORDERED: ePHEDrine 50 MG/ML SDV ONE (11:56)
[2023-01-31 14:07] VITALS: BP 110/77
== END 2023-01-31 13:02 | disposition home or self-care (01) ==
LOC: JD.SDS 09:06
PROVIDERS: ATTEND Surgery
DX: K29.70 Gastritis, unspecified, without bleeding (principal); K44.9 Diaphragmatic hernia without obstruction or gangrene; K64.9 Unspecified hemorrhoids; K63.89 Other specified diseases of intestine; L72.0 Epidermal cyst; D64.9 Anemia, unspecified; K31.89 Other diseases of stomach and duodenum; K64.4 Residual hemorrhoidal skin tags; Q43.8 Other specified congenital malformations of intestine; K64.8 Other hemorrhoids; I48.0 Paroxysmal atrial fibrillation; I11.0 Hypertensive heart disease with heart failure; I50.9 Heart failure, unspecified; E78.5 Hyperlipidemia, unspecified; Z79.899 Other long term (current) drug therapy; Z88.1 Allergy status to other antibiotic agents
CPT/HCPCS: 11200; 11402; 11403; 43239; 45378; C1758; J2704; J7120; 00813; J3490

== ENCOUNTER 2023-02-04 15:45 | Inpatient (IN) | payer OTHER ==
[2023-02-04] MEDS ORDERED: Sodium Chloride 0.9% 1,000 ML IV ONE (16:05)
[2023-02-04] MEDS ORDERED: Sodium Chloride 0.9% 10 ML Syringe FLUSH PRN (16:05)
[2023-02-04 17:12] LABS: ESTIMATED GFR 113 mL/min (>60)
[2023-02-04] MEDS ORDERED: Iopamidol 612 MG/ML 100 ML Bottle IVPUSH ONE (17:52)
[2023-02-04] MEDS ORDERED: Sodium Chloride 0.9% 10 ML Syringe FLUSH ONE (18:00)
[2023-02-04] MEDS ORDERED: cefTRIAXone 2 GM in Sodium Chloride 0.9% 100 ML IV ONE (19:25)
[2023-02-04] MEDS ORDERED: Ondansetron 4 MG/2 ML SDV IV PRN (22:14)
[2023-02-04] MEDS ORDERED: oxyCODONE 5 MG Tab PO PRN (22:14)
[2023-02-04] MEDS ORDERED: Morphine 2 MG/ML SYRINGE IVPUSH PRN (22:14)
[2023-02-04] MEDS ORDERED: Albuterol/Ipratropium 3.0-0.5 MG/3 ML Neb Soln NEB PRN (22:14)
[2023-02-04] MEDS ORDERED: LORazepam 2 MG/ML SDV IVPUSH PRN (22:32)
[2023-02-04] MEDS ORDERED: hydrALAZINE 20 MG/ML SDV IVPUSH PRN (22:33)
[2023-02-04] MEDS ORDERED: Melatonin 3 MG Tab PO PRN (22:33)
[2023-02-04] MEDS ORDERED: Metoprolol Tartrate 5 MG/5 ML SDV IVPUSH PRN (22:34)
[2023-02-04] MEDS ORDERED: Tamsulosin 0.4 MG Cap.ER PO SCH (22:45)
[2023-02-04 23:09] LABS: ESTIMATED GFR 113 mL/min (>60)
[2023-02-05] MEDS: Lactated Ringers 1,000 ML IV SCH ×2 (02:04→15:37)
[2023-02-05] MEDS: Acetaminophen 325 MG Tab PO PRN ×3 (04:08→22:11)
[2023-02-05] MEDS: Baclofen 10 MG Tab PO SCH ×5 (07:03→21:57)
[2023-02-05] MEDS: Enoxaparin 40 MG/0.4 ML Syringe SUBCUT SCH (09:38)
[2023-02-05] MEDS: Clindamycin HCl 150 MG Cap PO SCH ×3 (09:38→22:00)
[2023-02-05] MEDS ORDERED: Non-Formulary Medication 1 Each (Baclofen [Baclofen] 20 MG Tablet) PO SCH (13:00)
[2023-02-05] MEDS ORDERED: Polyethylene Glycol 3350 Powder 17 GM Packet PO SCH (13:00)
[2023-02-05] MEDS: carBAMazepine 200 MG Tab PO SCH (17:44)
[2023-02-05] MEDS: Carvedilol 12.5 MG Tab PO SCH (17:44)
[2023-02-05] MEDS: carBAMazepine 100 MG Tab.Chew PO SCH (17:44)
[2023-02-05] MEDS: Magnesium Oxide 400 MG Tab PO SCH (21:57)
[2023-02-05] MEDS: Tamsulosin 0.4 MG Cap.ER PO SCH (21:59)
[2023-02-05] MEDS: Fish Oil/Omega-3 Fatty Acids 1 Gm Cap PO SCH (22:01)
[2023-02-05] MEDS: Rosuvastatin 10 MG Tab PO SCH (22:01)
[2023-02-05] MEDS: Terazosin 5 MG Cap PO SCH (22:02)
[2023-02-05] MEDS: cefTRIAXone 1 GM in Sodium Chloride 0.9% 100 ML IV SCH (22:09)
[2023-02-05] MEDS: Polyethylene Glycol 3350 Powder 17 GM Packet PO SCH (22:11)
[2023-02-05] MEDS: diphenhydrAMINE 50 MG Cap PO PRN (22:45)
[2023-02-06] MEDS: Lactated Ringers 1,000 ML IV SCH ×2 (05:27→17:17)
[2023-02-06] MEDS: Acetaminophen 325 MG Tab PO PRN ×2 (06:08→21:25)
[2023-02-06] MEDS ORDERED: NA PHOS M B RECTAL SCH (09:00)
[2023-02-06] MEDS ORDERED: ALPHA LIPOIC ACID 600 MG PO SCH (09:00)
[2023-02-06] MEDS ORDERED: ACETYLCARNITINE 500 MG PO SCH (09:00)
[2023-02-06] MEDS ORDERED: NA PHOS DI B RECTAL SCH (09:00)
[2023-02-06] MEDS: Carvedilol 12.5 MG Tab PO SCH ×2 (09:06→21:24)
[2023-02-06] MEDS: Magnesium Oxide 400 MG Tab PO SCH ×2 (09:08→21:23)
[2023-02-06] MEDS: carBAMazepine 200 MG Tab PO SCH ×2 (09:08→21:25)
[2023-02-06] MEDS: carBAMazepine 100 MG Tab.Chew PO SCH ×2 (09:13→21:23)
[2023-02-06] MEDS: Baclofen 10 MG Tab PO SCH ×4 (09:14→21:24)
[2023-02-06] MEDS: amLODIPine 5 MG Tab PO SCH (09:14)
[2023-02-06] MEDS: Pantoprazole 40 MG Tab.CR PO SCH (09:15)
[2023-02-06] MEDS: Clindamycin HCl 150 MG Cap PO SCH ×3 (09:16→21:24)
[2023-02-06] MEDS: Fish Oil/Omega-3 Fatty Acids 1 Gm Cap PO SCH ×2 (09:18→21:23)
[2023-02-06] MEDS: Multivitamin Tab PO SCH (09:18)
[2023-02-06] MEDS: Cholecalciferol (Vitamin D3) 25 MCG Tab PO SCH (09:18)
[2023-02-06] MEDS: Enoxaparin 40 MG/0.4 ML Syringe SUBCUT SCH (09:19)
[2023-02-06] MEDS: Hydrocortisone 1% Crm 30 GM Tube TOP SCH (09:21)
[2023-02-06] MEDS: Terazosin 5 MG Cap PO SCH (21:23)
[2023-02-06] MEDS: Tamsulosin 0.4 MG Cap.ER PO SCH (21:23)
[2023-02-06] MEDS: diphenhydrAMINE 50 MG Cap PO PRN (21:25)
[2023-02-06] MEDS: cefTRIAXone 1 GM in Sodium Chloride 0.9% 100 ML IV SCH (21:25)
[2023-02-06] MEDS: Rosuvastatin 10 MG Tab PO SCH (21:26)
[2023-02-07] MEDS: Polyethylene Glycol 3350 Powder 17 GM Packet PO SCH ×2 (03:51→21:30)
[2023-02-07] MEDS: Lactated Ringers 1,000 ML IV SCH ×2 (06:53→22:24)
[2023-02-07] MEDS: Carvedilol 12.5 MG Tab PO SCH ×2 (09:28→21:28)
[2023-02-07] MEDS: Clindamycin HCl 150 MG Cap PO SCH ×3 (09:29→21:27)
[2023-02-07] MEDS: carBAMazepine 200 MG Tab PO SCH ×3 (09:29→21:30)
[2023-02-07] MEDS: carBAMazepine 100 MG Tab.Chew PO SCH ×3 (09:30→21:30)
[2023-02-07] MEDS: Fish Oil/Omega-3 Fatty Acids 1 Gm Cap PO SCH ×2 (09:30→21:28)
[2023-02-07] MEDS: amLODIPine 5 MG Tab PO SCH (09:30)
[2023-02-07] MEDS: Baclofen 10 MG Tab PO SCH ×5 (09:30→21:30)
[2023-02-07] MEDS: Magnesium Oxide 400 MG Tab PO SCH ×2 (09:32→21:27)
[2023-02-07] MEDS: Cholecalciferol (Vitamin D3) 25 MCG Tab PO SCH (09:32)
[2023-02-07] MEDS: Multivitamin Tab PO SCH (09:32)
[2023-02-07] MEDS: Pantoprazole 40 MG Tab.CR PO SCH (09:32)
[2023-02-07] MEDS: Hydrocortisone 1% Crm 30 GM Tube TOP SCH (09:33)
[2023-02-07] MEDS: Enoxaparin 40 MG/0.4 ML Syringe SUBCUT SCH (09:33)
[2023-02-07] MEDS ORDERED: Levofloxacin 500 MG Tab PO SCH (16:30)
[2023-02-07] MEDS: Terazosin 5 MG Cap PO SCH ×2 (19:40→21:30)
[2023-02-07] MEDS: Tamsulosin 0.4 MG Cap.ER PO SCH ×2 (19:40→21:29)
[2023-02-07] MEDS: Acetaminophen 325 MG Tab PO PRN (21:27)
[2023-02-07] MEDS: diphenhydrAMINE 50 MG Cap PO PRN (21:27)
[2023-02-07] MEDS: Rosuvastatin 10 MG Tab PO SCH (21:28)
[2023-02-08] MEDS: Enoxaparin 40 MG/0.4 ML Syringe SUBCUT SCH (08:55)
[2023-02-08] MEDS: carBAMazepine 100 MG Tab.Chew PO SCH (08:56)
[2023-02-08] MEDS: amLODIPine 5 MG Tab PO SCH (08:56)
[2023-02-08] MEDS: Carvedilol 12.5 MG Tab PO SCH (08:57)
[2023-02-08] MEDS: Magnesium Oxide 400 MG Tab PO SCH (08:57)
[2023-02-08] MEDS: Multivitamin Tab PO SCH (08:57)
[2023-02-08] MEDS: Pantoprazole 40 MG Tab.CR PO SCH (08:57)
[2023-02-08] MEDS: carBAMazepine 200 MG Tab PO SCH (08:57)
[2023-02-08] MEDS: Fish Oil/Omega-3 Fatty Acids 1 Gm Cap PO SCH (08:57)
[2023-02-08] MEDS: Cholecalciferol (Vitamin D3) 25 MCG Tab PO SCH (08:58)
[2023-02-08] MEDS: Clindamycin HCl 150 MG Cap PO SCH (08:59)
[2023-02-08] MEDS: Baclofen 10 MG Tab PO SCH (08:59)
[2023-02-08] MEDS: Hydrocortisone 1% Crm 30 GM Tube TOP SCH (09:00)
[2023-02-08 09:01] VITALS: BP 159/91; PULSE 75
== END 2023-02-08 10:25 | disposition home or self-care (01) | DRG 689 ==
LOC: JD.ED 15:45 → JD.MS 22:14
PROVIDERS: ADMIT Internal Medicine; ATTEND Internal Medicine
DX: N39.0 Urinary tract infection, site not specified (principal); G82.52 Quadriplegia, C1-C4 incomplete; G82.54 Quadriplegia, C5-C7 incomplete; I50.22 Chronic systolic (congestive) heart failure; J96.11 Chronic respiratory failure with hypoxia; E87.1 Hypo-osmolality and hyponatremia; B95.2 Enterococcus as the cause of diseases classified elsewhere; I48.91 Unspecified atrial fibrillation; L89.899 Pressure ulcer of other site, unspecified stage; E78.00 Pure hypercholesterolemia, unspecified; I11.0 Hypertensive heart disease with heart failure; G89.29 Other chronic pain; Z96.22 Myringotomy tube(s) status; I27.20 Pulmonary hypertension, unspecified; Z98.890 Other specified postprocedural states; Z95.0 Presence of cardiac pacemaker; Z86.711 Personal history of pulmonary embolism; Z88.0 Allergy status to penicillin; Z90.89 Acquired absence of other organs; Z88.8 Allergy status to other drugs, medicaments and biological substances; Z88.2 Allergy status to sulfonamides
CPT/HCPCS: 36415; 51702; 74177; 74177-26; 80053; 81001; 83605; 83735; 83880; 85007; 85025; 85027; 85610; 86140; 87040; 87086; 87088; 87186; 93307; 94660; 94762; 96361; 96365; 97161-GP; 99223; 99232; 99239; 99285; 99285-25; A9270-GY; J0696; J1650; J2060; J3490; J7030; J7120; Q0163

== ENCOUNTER 2023-03-29 00:36 | Inpatient (IN) | payer OTHER ==
[2023-03-29] MEDS ORDERED: Sodium Chloride 0.9% 1,000 ML IV SCH ×2 (02:30→16:00)
[2023-03-29 03:08] LABS: HEMATOCRIT 40.9 % (40.1-51.0); HEMOGLOBIN 13.2 gm/dl (13.7-17.5); MEAN CORPUSCULAR HEMOGLOBIN 26.9 pg (25.7-32.2); MEAN CORPUSCULAR HGB CONC 32.3 g/dl (32.2-35.5); MEAN CORPUSCULAR VOLUME 83.5 fl (79.0-92.2); MEAN PLATELET VOLUME 10.5 fl (9.4-12.3); PLATELET COUNT,PLT 277 K/mm3 (163-337)
[2023-03-29 03:29] LABS: BAND PERCENT MAN 2 % (0-10); BASOPHILS PERCENT MAN 1 (0.2-1.2); EOSINOPHILS PERCENT MAN 3 % (0.8-7.0); LYMPHOCYTES % ATYPICAL MANUAL 0 %; LYMPHOCYTES PERCENT MAN 7 % (20-40); METAMYELOCYTE PERCENT MAN 1; MONOCYTES PERCENT MAN 10 % (2-10)
[2023-03-29 03:32] LABS: ANISOCYTOSIS 1+ SLIGHT
[2023-03-29 03:33] LABS: PLATELET COUNT ESTIMATE ADEQUATE
[2023-03-29 03:34] LABS: CORONAVIRUS COVID-19 NAA NEGATIVE (NEGATIVE); INFLUENZA A NAA NEGATIVE (NEGATIVE)
[2023-03-29] MEDS ORDERED: Iopamidol 612 MG/ML 100 ML Bottle IVPUSH ONE (03:34)
[2023-03-29 03:39] LABS: APPEARANCE,URINE TURBID (Clear); BILIRUBIN,URINE NEGATIVE (Negative); COLOR,URINE DARK YELLOW (Yellow); GLUCOSE,URINE NEGATIVE (Negative); KETONES,URINE NEGATIVE (Negative); LEUKOCYTE ESTERASE,URINE 2+ (Negative); NITRITE,URINE NEGATIVE (Negative); OCCULT BLOOD,URINE 3+ (Negative); PROTEIN,URINE 3+ (Negative); UROBILINOGEN,URINE 0.2 (0.2-1.0)
[2023-03-29 03:54] LABS: RBC,URINE >100 /hpf (0-5)
[2023-03-29 03:55] LABS: BACTERIA,URINE MANY /hpf (FEW); EPITHELIAL CELLS,URINE NOT SEEN /hpf (0-5); WBC,URINE TOO NUMEROUS TO CNT /hpf (0-5)
[2023-03-29 03:56] LABS: MUCUS,URINE NOT SEEN /hpf (FEW)
[2023-03-29 04:44] LABS: A/G RATIO 1.2 (1-2); ALBUMIN 3.7 g/dl (3.4-5.0); ANION GAP 13.3 (5-15); BILIRUBIN TOTAL 0.2 mg/dL (0.2-1.0); C-REACTIVE PROTEIN 3.2 mg/dL (<1.0); CALCIUM 9.7 mg/dL (8.5-10.1); CREATININE 0.5 mg/dL (0.7-1.3); EST CRCL DRUG DOSING (CG) 210.73 mL/min; POTASSIUM,K 4.3 mEq/L (3.5-5.1); PROTEIN TOTAL,TP 6.8 g/dl (6.4-8.2)
[2023-03-29] MEDS ORDERED: VANCOmycin 2 GM/400 ML 2 GM in Premix Bag 1 BAG IV STA (05:08)
[2023-03-29] MEDS ORDERED: Cefepime 2 GM in Sodium Chloride 0.9% 50 ML IV STA (05:08)
[2023-03-29] MEDS ORDERED: Ondansetron 4 MG/2 ML SDV IVPUSH ONE (06:04)
[2023-03-29] MEDS ORDERED: carBAMazepine 200 MG Tab PO ONE (08:54)
[2023-03-29] MEDS ORDERED: Baclofen 10 MG Tab PO ONE (09:00)
[2023-03-29] MEDS ORDERED: HYDROmorphone 0.5 MG/0.5 ML Syringe IVPUSH PRN (14:11)
[2023-03-29] MEDS ORDERED: Ondansetron 4 MG/2 ML SDV IV PRN (14:11)
[2023-03-29] MEDS ORDERED: oxyCODONE 5 MG Tab PO PRN (14:11)
[2023-03-29] MEDS ORDERED: NA PHOS DI B SCH (14:15)
[2023-03-29] MEDS ORDERED: NA PHOS M B SCH (14:15)
[2023-03-29] MEDS ORDERED: Polyethylene Glycol/Electrolytes 4,000 ML Bottle PO SCH (14:15)
[2023-03-29] MEDS ORDERED: Carvedilol 12.5 MG Tab PO ONE ×2 (16:00→21:00)
[2023-03-29] MEDS: Cefepime 2 GM in Sodium Chloride 0.9% 50 ML IV SCH (16:03)
[2023-03-29] MEDS ORDERED: Sodium Chloride 0.9% 500 ML IV ONE (16:15)
[2023-03-29] MEDS: Baclofen 10 MG Tab PO SCH ×2 (16:23→20:22)
[2023-03-29] MEDS: Acetaminophen 325 MG Tab PO PRN (16:59)
[2023-03-29] MEDS ORDERED: VANCOmycin 1.5 GM/300 ML 1.5 GM in Premix Bag 1 BAG IV SCH (19:00)
[2023-03-29] MEDS: Rosuvastatin 10 MG Tab PO SCH (20:22)
[2023-03-29] MEDS: Tamsulosin 0.4 MG Cap.ER PO SCH (20:22)
[2023-03-29] MEDS: carBAMazepine 100 MG Tab.Chew PO SCH (20:23)
[2023-03-29] MEDS: Terazosin 5 MG Cap PO SCH (20:23)
[2023-03-29] MEDS: Enoxaparin 40 MG/0.4 ML Syringe SUBCUT SCH (20:24)
[2023-03-29] MEDS: Polyethylene Glycol 3350 Powder 17 GM Packet PO SCH ×2 (20:25→20:30)
[2023-03-29] MEDS: SODIUM PHOSPHATE MONOBASIC SCH (23:00)
[2023-03-29] MEDS: SODIUM PHOSPHATE DIBASIC SCH (23:00)
[2023-03-30] MEDS: Cefepime 2 GM in Sodium Chloride 0.9% 50 ML IV SCH ×3 (00:36→08:24)
[2023-03-30] MEDS: Acetaminophen 325 MG Tab PO PRN (03:49)
[2023-03-30 08:09] LABS: BASOPHILS ABSOLUTE AUTO 0.01 K/mm3 (0.01-0.08); BASOPHILS PERCENT AUTO 0.1 % (0.1-1.2); EOSINOPHILS ABSOLUTE AUTO 0.26 K/mm3 (0.04-0.54); EOSINOPHILS PERCENT AUTO 3.5 (0.8-7.0); HEMATOCRIT 40.1 % (40.1-51.0); HEMOGLOBIN 12.4 gm/dl (13.7-17.5); IMMATURE GRAN ABSOLUTE AUTO 0.02 K/mm3 (0.00-0.10); IMMATURE GRAN PERCENT AUTO 0.3 % (<=1.0); LYMPHOCYTES ABSOLUTE AUTO 1.46 K/mm3 (1.32-3.57); LYMPHOCYTES PERCENT AUTO 19.9 % (21.8-53.1); MEAN CORPUSCULAR HGB CONC 30.9 g/dl (32.2-35.5); MEAN CORPUSCULAR VOLUME 87.2 fl (79.0-92.2); MEAN PLATELET VOLUME 10.8 fl (9.4-12.3); MONOCYTES ABSOLUTE AUTO 0.87 K/mm3 (0.30-0.82); MONOCYTES PERCENT AUTO 11.8 % (5.3-12.2); NEUTROPHILS ABSOLUTE AUTO 4.73 K/mm3 (1.78-5.38); NEUTROPHILS PERCENT AUTO 64.4 % (34.0-67.9); PLATELET COUNT,PLT 249 K/mm3 (163-337); WHITE BLOOD CELL COUNT,WBC 7.35 K/mm3 (4.23-9.07)
[2023-03-30] MEDS: carBAMazepine 100 MG Tab.Chew PO SCH ×2 (08:24→22:40)
[2023-03-30 08:25] LABS: A/G RATIO 1.2 (1-2); ALBUMIN 3.4 g/dl (3.4-5.0); ANION GAP 10.3 (5-15); BILIRUBIN TOTAL 0.2 mg/dL (0.2-1.0); C-REACTIVE PROTEIN 4.5 mg/dL (<1.0); CALCIUM 9.1 mg/dL (8.5-10.1); CREATININE 0.5 mg/dL (0.7-1.3); EST CRCL DRUG DOSING (CG) 216.03 mL/min; POTASSIUM,K 4.3 mEq/L (3.5-5.1); PROTEIN TOTAL,TP 6.3 g/dl (6.4-8.2); VANCOMYCIN RANDOM 13.3 ug/mL
[2023-03-30] MEDS: Baclofen 10 MG Tab PO SCH ×4 (08:25→22:40)
[2023-03-30] MEDS: LINACLOTIDE 145 MCG PO SCH (08:26)
[2023-03-30] MEDS ORDERED: VANCOmycin 1.5 GM/300 ML 1.5 GM in Premix Bag 1 BAG IV SCH (11:00)
[2023-03-30] MEDS: Carvedilol 12.5 MG Tab PO SCH ×2 (13:36→18:30)
[2023-03-30] MEDS: Rosuvastatin 10 MG Tab PO SCH (22:38)
[2023-03-30] MEDS: Tamsulosin 0.4 MG Cap.ER PO SCH (22:38)
[2023-03-30] MEDS: Enoxaparin 40 MG/0.4 ML Syringe SUBCUT SCH (22:41)
[2023-03-30] MEDS: Nitrofurantoin Monohydrate/Macrocrystalline 100 MG Cap PO SCH (22:41)
[2023-03-30] MEDS ORDERED: diphenhydrAMINE 50 MG Cap PO PRN (22:43)
[2023-03-30] MEDS: Terazosin 5 MG Cap PO SCH (23:00)
[2023-03-31 06:11] LABS: BASOPHILS ABSOLUTE AUTO 0.01 K/mm3 (0.01-0.08); BASOPHILS PERCENT AUTO 0.1 % (0.1-1.2); EOSINOPHILS ABSOLUTE AUTO 0.31 K/mm3 (0.04-0.54); EOSINOPHILS PERCENT AUTO 3.9 (0.8-7.0); HEMATOCRIT 38.1 % (40.1-51.0); HEMOGLOBIN 12.1 gm/dl (13.7-17.5); IMMATURE GRAN ABSOLUTE AUTO 0.01 K/mm3 (0.00-0.10); IMMATURE GRAN PERCENT AUTO 0.1 % (<=1.0); LYMPHOCYTES PERCENT AUTO 21.4 % (21.8-53.1); MEAN CORPUSCULAR HEMOGLOBIN 27.3 pg (25.7-32.2); MEAN CORPUSCULAR HGB CONC 31.8 g/dl (32.2-35.5); MEAN PLATELET VOLUME 10.4 fl (9.4-12.3); MONOCYTES ABSOLUTE AUTO 0.86 K/mm3 (0.30-0.82); MONOCYTES PERCENT AUTO 10.8 % (5.3-12.2); NEUTROPHILS ABSOLUTE AUTO 5.04 K/mm3 (1.78-5.38); NEUTROPHILS PERCENT AUTO 63.7 % (34.0-67.9); PLATELET COUNT,PLT 240 K/mm3 (163-337); RED BLOOD CELL COUNT 4.43 M/mm3 (4.63-6.08); WHITE BLOOD CELL COUNT,WBC 7.93 K/mm3 (4.23-9.07)
[2023-03-31 07:25] LABS: A/G RATIO 1.1 (1-2); ALBUMIN 3.3 g/dl (3.4-5.0); BILIRUBIN TOTAL 0.2 mg/dL (0.2-1.0); C-REACTIVE PROTEIN 2.9 mg/dL (<1.0); CREATININE 0.5 mg/dL (0.7-1.3); EST CRCL DRUG DOSING (CG) 210.73 mL/min; MAGNESIUM 1.7 mg/dL (1.8-2.4); PROTEIN TOTAL,TP 6.3 g/dl (6.4-8.2)
[2023-03-31] MEDS: Baclofen 10 MG Tab PO SCH ×4 (08:24→22:22)
[2023-03-31] MEDS: Nitrofurantoin Monohydrate/Macrocrystalline 100 MG Cap PO SCH ×2 (08:24→22:22)
[2023-03-31] MEDS: carBAMazepine 100 MG Tab.Chew PO SCH ×2 (08:24→22:21)
[2023-03-31] MEDS: LINACLOTIDE 145 MCG PO SCH (08:25)
[2023-03-31] MEDS: Carvedilol 12.5 MG Tab PO SCH ×2 (13:06→18:30)
[2023-03-31] MEDS: Rosuvastatin 10 MG Tab PO SCH (22:20)
[2023-03-31] MEDS: Tamsulosin 0.4 MG Cap.ER PO SCH (22:20)
[2023-03-31] MEDS: Terazosin 5 MG Cap PO SCH (22:20)
[2023-03-31] MEDS: SODIUM PHOSPHATE DIBASIC SCH ×2 (22:22→22:35)
[2023-03-31] MEDS: SODIUM PHOSPHATE MONOBASIC SCH ×2 (22:22→22:35)
[2023-03-31] MEDS: Enoxaparin 40 MG/0.4 ML Syringe SUBCUT SCH (22:22)
[2023-04-01 06:02] LABS: BASOPHILS ABSOLUTE AUTO 0.01 K/mm3 (0.01-0.08); BASOPHILS PERCENT AUTO 0.2 % (0.1-1.2); EOSINOPHILS ABSOLUTE AUTO 0.35 K/mm3 (0.04-0.54); EOSINOPHILS PERCENT AUTO 5.9 (0.8-7.0); HEMATOCRIT 38.8 % (40.1-51.0); HEMOGLOBIN 12.3 gm/dl (13.7-17.5); IMMATURE GRAN ABSOLUTE AUTO 0.01 K/mm3 (0.00-0.10); IMMATURE GRAN PERCENT AUTO 0.2 % (<=1.0); LYMPHOCYTES ABSOLUTE AUTO 1.22 K/mm3 (1.32-3.57); LYMPHOCYTES PERCENT AUTO 20.7 % (21.8-53.1); MEAN CORPUSCULAR HEMOGLOBIN 27.2 pg (25.7-32.2); MEAN CORPUSCULAR HGB CONC 31.7 g/dl (32.2-35.5); MEAN CORPUSCULAR VOLUME 85.7 fl (79.0-92.2); MEAN PLATELET VOLUME 10.3 fl (9.4-12.3); MONOCYTES ABSOLUTE AUTO 0.83 K/mm3 (0.30-0.82); MONOCYTES PERCENT AUTO 14.1 % (5.3-12.2); NEUTROPHILS ABSOLUTE AUTO 3.47 K/mm3 (1.78-5.38); NEUTROPHILS PERCENT AUTO 58.9 % (34.0-67.9); PLATELET COUNT,PLT 237 K/mm3 (163-337); RED BLOOD CELL COUNT 4.53 M/mm3 (4.63-6.08); WHITE BLOOD CELL COUNT,WBC 5.89 K/mm3 (4.23-9.07)
[2023-04-01 06:18] LABS: A/G RATIO 1.1 (1-2); ALBUMIN 3.3 g/dl (3.4-5.0); BILIRUBIN TOTAL 0.3 mg/dL (0.2-1.0); BUN/CREATININE RATIO 31.7 (14-18); CALCIUM 9.2 mg/dL (8.5-10.1); CREATININE 0.6 mg/dL (0.7-1.3); EST CRCL DRUG DOSING (CG) 175.61 mL/min; MAGNESIUM 1.7 mg/dL (1.8-2.4); PROTEIN TOTAL,TP 6.3 g/dl (6.4-8.2)
[2023-04-01 08:45] VITALS: PULSE 70
[2023-04-01] MEDS: Nitrofurantoin Monohydrate/Macrocrystalline 100 MG Cap PO SCH (09:01)
[2023-04-01] MEDS: Baclofen 10 MG Tab PO SCH (09:01)
[2023-04-01] MEDS: carBAMazepine 100 MG Tab.Chew PO SCH (09:01)
[2023-04-01 11:46] VITALS: BP 128/98
[2023-04-01] MEDS ORDERED: Polyethylene Glycol 3350 Powder 17 GM Packet PO SCH (21:00)
== END 2023-04-01 13:35 | disposition home or self-care (01) | DRG 689 ==
LOC: JD.ED 00:36 → JD.MS 11:51
PROVIDERS: ADMIT Internal Medicine; ATTEND Internal Medicine
DX: N30.01 Acute cystitis with hematuria (principal); G82.52 Quadriplegia, C1-C4 incomplete; G82.54 Quadriplegia, C5-C7 incomplete; I48.20 Chronic atrial fibrillation, unspecified; B95.2 Enterococcus as the cause of diseases classified elsewhere; N40.0 Benign prostatic hyperplasia without lower urinary tract symptoms; Z20.822 Contact with and (suspected) exposure to COVID-19; N31.9 Neuromuscular dysfunction of bladder, unspecified; G47.30 Sleep apnea, unspecified; K59.09 Other constipation; L89.322 Pressure ulcer of left buttock, stage 2; I10 Essential (primary) hypertension; E78.5 Hyperlipidemia, unspecified; H54.7 Unspecified visual loss; Z86.16 Personal history of COVID-19; Z95.0 Presence of cardiac pacemaker; Z88.0 Allergy status to penicillin; Z88.2 Allergy status to sulfonamides; Z88.1 Allergy status to other antibiotic agents; Z79.899 Other long term (current) drug therapy
CPT/HCPCS: 0240U; 36415; 51701; 51798; 74177; 74177-26; 80053; 80202; 81001; 83735; 84145; 85007; 85025; 85027; 86140; 87040; 87086; 87088; 87186; 96361; 96365; 96366; 96367; 96375; 97162-GP; 99222; 99232; 99239; 99284-25; 99285; A9270-GY; G0103; J0692; J1650; J2405; J3370; J3490; J7030; Q0163; Q9967

== ENCOUNTER 2024-03-01 17:10 | Emergency (ER) | payer BC, OTHER ==
[2024-03-01 18:04] LABS: HEMATOCRIT 41.7 % (42.0-52.0); HEMOGLOBIN 14.2 gm/dl (14.0-18.0); MEAN CORPUSCULAR HEMOGLOBIN 31.7 pg (28.0-32.0); MEAN CORPUSCULAR HGB CONC 34.1 g/dl (32.0-36.0); MEAN CORPUSCULAR VOLUME 93.1 fl (83.0-99.0); MEAN PLATELET VOLUME 10.3 fl (9.4-12.4); PLATELET COUNT,PLT 170 K/mm3 (150-400); RED BLOOD CELL COUNT 4.48 M/mm3 (4.52-5.90); WHITE BLOOD CELL COUNT,WBC 11.82 K/mm3 (3.9-11.3)
[2024-03-01 18:21] LABS: INR 1.17; PROTHROMBIN TIME 12.4 SECONDS (9.7-12.0)
[2024-03-01 18:23] LABS: BAND PERCENT MAN 0 % (0-10); BASOPHILS PERCENT MAN 0 (0.2-1.2); EOSINOPHILS PERCENT MAN 0 % (0.8-7.0); LYMPHOCYTES % ATYPICAL MANUAL 0 %; LYMPHOCYTES PERCENT MAN 10 % (20-40); MONOCYTES PERCENT MAN 9 % (2-10)
[2024-03-01 18:24] LABS: APPEARANCE,URINE CLOUDY (Clear); BILIRUBIN,URINE NEGATIVE (Negative); COLOR,URINE YELLOW (Yellow); GLUCOSE,URINE NEGATIVE (Negative); KETONES,URINE NEGATIVE (Negative); LEUKOCYTE ESTERASE,URINE 3+ (Negative); NITRITE,URINE POSITIVE (Negative); OCCULT BLOOD,URINE TRACE-INTACT (Negative); PH,URINE 7.5 (5.0-8.0); PROTEIN,URINE 2+ (Negative); UROBILINOGEN,URINE 0.2 (0.2-1.0)
[2024-03-01 18:24] LABS: PLATELET COUNT ESTIMATE ADEQUATE
[2024-03-01 18:25] LABS: A/G RATIO 1.1 (1-2); ALBUMIN 3.6 g/dl (3.4-5.0); ANION GAP 11.1 (5-15); BILIRUBIN TOTAL 0.6 mg/dL (0.2-1.0); BUN/CREATININE RATIO 11.1 (14-18); C-REACTIVE PROTEIN 14.36 mg/dL (<0.30); CALCIUM 9.2 mg/dL (8.5-10.1); CREATININE 0.9 mg/dL (0.7-1.3); EST CRCL DRUG DOSING (CG) 118.57 mL/min; POTASSIUM,K 4.1 mEq/L (3.5-5.1)
[2024-03-01 18:28] LABS: LACTIC ACID 0.9 mmol/L (0.4-2.0)
[2024-03-01 18:30] LABS: RBC,URINE 20-30 /hpf (0-5); SQUAMOUS EPITHELIAL CELLS,UR 0-5 /hpf (0-5); WBC,URINE 75-100 /hpf (0-5)
[2024-03-01 18:31] LABS: BACTERIA,URINE MANY /hpf (FEW); MUCUS,URINE FEW /hpf (FEW)
[2024-03-01] MEDS: Sodium Chloride 0.9% 10 ML Syringe FLUSH PRN (18:58)
[2024-03-01] MEDS: cefTRIAXone 2 GM in Sodium Chloride 0.9% 100 ML IV ONE (18:58)
[2024-03-01] MEDS: Sodium Chloride 0.9% 1,000 ML IV SCH (20:14)
[2024-03-01 20:29] VITALS: BP 135/79; PULSE 70
[2024-03-01] MEDS: Sodium Chloride 0.9% 1,000 ML ONE (20:29)
== END 2024-03-01 20:14 | disposition home or self-care (01) ==
LOC: JD.ED 17:10
DX: N13.2 Hydronephrosis with renal and ureteral calculous obstruction (principal); I10 Essential (primary) hypertension; E78.00 Pure hypercholesterolemia, unspecified; Z88.0 Allergy status to penicillin; N30.01 Acute cystitis with hematuria; Z88.2 Allergy status to sulfonamides; Z79.899 Other long term (current) drug therapy; Z86.16 Personal history of COVID-19
CPT/HCPCS: 36415; 74176; 74176-26; 80053; 81001; 83605; 85007; 85027; 85610; 86140; 87040; 87086; 87088; 87154; 87186; 96365; 99284-25; J0696; J3490; J7030

== ENCOUNTER 2025-01-22 23:18 | Inpatient (IN) | payer BC ==
[2025-01-22] MEDS ORDERED: Sodium Chloride 0.9% 10 ML Syringe FLUSH PRN (23:38)
[2025-01-22 23:45] LABS: HEMATOCRIT 45.1 % (42.0-52.0); MEAN CORPUSCULAR HEMOGLOBIN 31.1 pg (28.0-32.0); MEAN CORPUSCULAR HGB CONC 35.5 g/dl (32.0-36.0); MEAN CORPUSCULAR VOLUME 87.7 fl (83.0-99.0); MEAN PLATELET VOLUME 9.9 fl (9.4-12.4); PLATELET COUNT,PLT 186 K/mm3 (150-400); RED BLOOD CELL COUNT 5.14 M/mm3 (4.52-5.90); WHITE BLOOD CELL COUNT,WBC 8.49 K/mm3 (3.9-11.3)
[2025-01-22 23:53] LABS: INR 1.13; PROTHROMBIN TIME 11.9 SECONDS (9.7-12.0)
[2025-01-23 00:04] LABS: A/G RATIO 1.6 (1-2); ALBUMIN 4.1 g/dl (3.4-5.0); ANION GAP 6.8 (5-15); BILIRUBIN TOTAL 0.4 mg/dL (0.2-1.0); BUN/CREATININE RATIO 31.4 (14-18); C-REACTIVE PROTEIN 0.74 mg/dL (<0.30); CALCIUM 10.1 mg/dL (8.5-10.1); CREATININE 0.7 mg/dL (0.7-1.3); EST CRCL DRUG DOSING (CG) 131.22 mL/min; POTASSIUM,K 2.8 mEq/L (3.5-5.1); PROTEIN TOTAL,TP 6.7 g/dl (6.4-8.2)
[2025-01-23 00:06] LABS: LACTIC ACID 1.8 mmol/L (0.4-2.0)
[2025-01-23 00:12] LABS: BAND PERCENT MAN 0 % (0-10); BASOPHILS PERCENT MAN 0 (0.2-1.2); EOSINOPHILS PERCENT MAN 0 % (0.8-7.0); LYMPHOCYTES % ATYPICAL MANUAL 0 %; LYMPHOCYTES PERCENT MAN 12 % (20-40); MONOCYTES PERCENT MAN 3 % (2-10); PLATELET COUNT ESTIMATE ADEQUATE
[2025-01-23 00:14] LABS: APPEARANCE,URINE CLOUDY (Clear); BILIRUBIN,URINE NEGATIVE (Negative); COLOR,URINE DARK YELLOW (Yellow); GLUCOSE,URINE NEGATIVE (Negative); KETONES,URINE TRACE (Negative); LEUKOCYTE ESTERASE,URINE 3+ (Negative); NITRITE,URINE POSITIVE (Negative); OCCULT BLOOD,URINE TRACE-INTACT (Negative); PH,URINE 6.5 (5.0-8.0); PROTEIN,URINE 2+ (Negative); UROBILINOGEN,URINE 0.2 (0.2-1.0)
[2025-01-23 00:45] LABS: EPITHELIAL CELLS,URINE 0-5 /hpf (0-5); RBC,URINE 0-5 /hpf (0-5); WBC,URINE 30-40 /hpf (0-5)
[2025-01-23 00:46] LABS: BACTERIA,URINE MODERATE /hpf (FEW); MUCUS,URINE FEW /hpf (FEW)
[2025-01-23] MEDS: cefTRIAXone 2 GM Vial IVPUSH ONE (00:50)
[2025-01-23] MEDS: Sodium Chloride 0.9% 1,000 ML IV SCH (01:46)
[2025-01-23] MEDS: Azithromycin 500 MG in Sodium Chloride 0.9% 250 ML IV ONE (01:47)
[2025-01-23] MEDS: Potassium Chloride 10 MEQ in Premix Bag 1 BAG IV SCH (01:47)
[2025-01-23] MEDS: Baclofen 10 MG Tab PO SCH (08:25)
[2025-01-23 09:03] LABS: ANION GAP 7.1 (5-15); BUN/CREATININE RATIO 23.8 (14-18); C-REACTIVE PROTEIN 0.73 mg/dL (<0.30); CALCIUM 9.7 mg/dL (8.5-10.1); CREATININE 0.8 mg/dL (0.7-1.3); EST CRCL DRUG DOSING (CG) 122.06 mL/min; MAGNESIUM 1.5 mg/dL (1.8-2.4); PHOSPHORUS 3.3 mg/dL (2.6-4.7); POTASSIUM,K 3.1 mEq/L (3.5-5.1)
[2025-01-23] MEDS ORDERED: Non-Formulary Medication 1 Each (Baclofen [Baclofen] 20 MG Tablet) PO SCH (09:38)
[2025-01-23] MEDS ORDERED: Albuterol 0.083% 2.5 MG/3 ML Neb Soln NEB PRN (09:40)
[2025-01-23] MEDS ORDERED: Albuterol/Ipratropium 3.0-0.5 MG/3 ML Neb Soln NEB PRN (09:40)
[2025-01-23] MEDS: Albuterol/Ipratropium 3.0-0.5 MG/3 ML Neb Soln NEB SCH (10:12)
[2025-01-23] MEDS: amLODIPine 5 MG Tab PO SCH (11:29)
[2025-01-23] MEDS: Losartan 25 MG Tab PO SCH (11:31)
[2025-01-23] MEDS: Magnesium Oxide 400 MG Tab PO SCH (11:31)
[2025-01-23] MEDS: Rosuvastatin 10 MG Tab PO SCH (11:31)
[2025-01-23] MEDS: Sennosides/Docusate Sodium 50-8.6 MG Tab PO SCH (11:31)
[2025-01-23] MEDS: Enoxaparin 40 MG/0.4 ML Syringe SUBCUT SCH (11:32)
[2025-01-23] MEDS: Polyethylene Glycol 3350 Powder 17 GM Packet PO SCH (11:32)
[2025-01-23] MEDS: Magnesium Sulf/Wat 2 GM/50 mL 2 GM in Premix Bag 1 BAG IV ONE (11:41)
[2025-01-23] MEDS: Carvedilol 12.5 MG Tab PO SCH (13:18)
[2025-01-23 16:14] LABS: HEMOGLOBIN A1C 5.8 %
[2025-01-23] MEDS: NS + KCl 20mEq/L 1,000 ML IV SCH (16:58)
[2025-01-23] MEDS: Terazosin 5 MG Cap PO SCH (20:17)
[2025-01-23] MEDS: Tamsulosin 0.4 MG Cap.ER PO SCH (20:17)
[2025-01-23] MEDS: guaiFENesin 600 MG Tab.ER PO SCH (20:17)
[2025-01-23] MEDS: traZODone 50 MG Tab PO SCH (20:17)
[2025-01-23] MEDS: CARBAMAZEPINE 100 MG PO SCH (21:37)
[2025-01-24 05:35] LABS: BASOPHILS PERCENT AUTO 0.4 % (0.0-1.0); EOSINOPHILS ABSOLUTE AUTO 0.2 K/mm3 (0.0-0.4); EOSINOPHILS PERCENT AUTO 2.3 % (0.0-6.0); HEMATOCRIT 42.5 % (42.0-52.0); IMMATURE GRAN ABSOLUTE AUTO 0.04 K/mm3 (0.00-0.05); IMMATURE GRAN PERCENT AUTO 0.5 % (0.0-0.4); LYMPHOCYTES ABSOLUTE AUTO 1.6 K/mm3 (1.0-4.8); LYMPHOCYTES PERCENT AUTO 20.8 % (24.0-44.0); MEAN CORPUSCULAR HEMOGLOBIN 31.3 pg (28.0-32.0); MEAN CORPUSCULAR HGB CONC 35.3 g/dl (32.0-36.0); MEAN CORPUSCULAR VOLUME 88.5 fl (83.0-99.0); MEAN PLATELET VOLUME 9.8 fl (9.4-12.4); MONOCYTES PERCENT AUTO 12.3 % (0.0-8.0); NEUTROPHILS ABSOLUTE AUTO 4.9 K/mm3 (1.8-7.7); NEUTROPHILS PERCENT AUTO 63.7 % (41.0-71.0); PLATELET COUNT,PLT 173 K/mm3 (150-400); WHITE BLOOD CELL COUNT,WBC 7.75 K/mm3 (3.9-11.3)
[2025-01-24 05:54] LABS: A/G RATIO 1.3 (1-2); ALBUMIN 3.4 g/dl (3.4-5.0); ANION GAP 8.1 (5-15); BILIRUBIN TOTAL 0.6 mg/dL (0.2-1.0); BUN/CREATININE RATIO 33.3 (14-18); C-REACTIVE PROTEIN 1.61 mg/dL (<0.30); CALCIUM 8.9 mg/dL (8.5-10.1); CREATININE 0.6 mg/dL (0.7-1.3); EST CRCL DRUG DOSING (CG) 162.75 mL/min; MAGNESIUM 1.8 mg/dL (1.8-2.4); POTASSIUM,K 3.1 mEq/L (3.5-5.1)
[2025-01-24] MEDS ORDERED: Indapamide 2.5 MG Tab PO SCH (09:00)
[2025-01-24] MEDS: Acetaminophen 325 MG Tab PO PRN (10:39)
[2025-01-24] MEDS: Magnesium Sulfat/D5W 1GM/100ML 1 GM in Premix Bag 1 BAG IV ONE (16:30)
[2025-01-24] MEDS: Potassium Chloride 20 MEQ Tab.ER PO ONE (16:30)
[2025-01-24] MEDS: Baclofen 10 MG Tab PO SCH (18:38)
[2025-01-24] MEDS: Polyethylene Glycol 3350 Powder 17 GM Packet PO SCH (21:32)
[2025-01-24] MEDS: cefTRIAXone 2 GM Vial IVPUSH SCH (22:12)
[2025-01-24] MEDS: Azithromycin 250 MG Tab PO SCH (22:12)
[2025-01-24] MEDS: Ondansetron 4 MG/2 ML SDV IV PRN (22:19)
[2025-01-25 05:45] LABS: BUN/CREATININE RATIO 35.7 (14-18); C-REACTIVE PROTEIN 1.46 mg/dL (<0.30); CALCIUM 9.5 mg/dL (8.5-10.1); CREATININE 0.7 mg/dL (0.7-1.3); EST CRCL DRUG DOSING (CG) 139.5 mL/min; MAGNESIUM 1.9 mg/dL (1.8-2.4)
[2025-01-25] MEDS: Sennosides/Docusate Sodium 50-8.6 MG Tab PO SCH (08:38)
[2025-01-25] MEDS: amLODIPine 10 MG Tab PO SCH (08:39)
[2025-01-25 15:45] VITALS: BP 128/78; PULSE 86
== END 2025-01-25 15:40 | disposition home or self-care (01) | DRG 139 ==
LOC: JD.ED 23:18 → JD.ICU 01-23 01:40
PROVIDERS: ADMIT Student in an Organized Health Care Education/Training Program; ATTEND Student in an Organized Health Care Education/Training Program
DX: J18.9 Pneumonia, unspecified organism (principal); N39.0 Urinary tract infection, site not specified; H54.7 Unspecified visual loss; I48.91 Unspecified atrial fibrillation; Z68.32 Body mass index [BMI] 32.0-32.9, adult; E78.00 Pure hypercholesterolemia, unspecified; E66.9 Obesity, unspecified; D64.9 Anemia, unspecified; G82.50 Quadriplegia, unspecified; G47.33 Obstructive sleep apnea (adult) (pediatric); E87.6 Hypokalemia; N40.0 Benign prostatic hyperplasia without lower urinary tract symptoms; R33.9 Retention of urine, unspecified; E87.1 Hypo-osmolality and hyponatremia; I49.5 Sick sinus syndrome; S21.202D Unspecified open wound of left back wall of thorax without penetration into thoracic cavity, subsequent encounter; I11.0 Hypertensive heart disease with heart failure; I50.22 Chronic systolic (congestive) heart failure; E83.42 Hypomagnesemia; R09.89 Other specified symptoms and signs involving the circulatory and respiratory systems; R73.9 Hyperglycemia, unspecified; E87.8 Other disorders of electrolyte and fluid balance, not elsewhere classified; N31.9 Neuromuscular dysfunction of bladder, unspecified; Z88.0 Allergy status to penicillin; Z88.8 Allergy status to other drugs, medicaments and biological substances; Z86.16 Personal history of COVID-19; Z90.49 Acquired absence of other specified parts of digestive tract; Z79.899 Other long term (current) drug therapy; Z98.890 Other specified postprocedural states; Z95.0 Presence of cardiac pacemaker
CPT/HCPCS: 36415; 51701; 71045; 71045-26; 80048; 80053; 81001; 83036; 83605; 83735; 84100; 85007; 85025; 85027; 85610; 86140; 87040; 87086; 87088; 87186; 87428-QW; 93010; 93306; 94640; 94660; 94667; 94668; 94761; 96374; 97162-GP; 97530-GP; 99285; 99285-25; A9270-GY; C1758; J0456; J0696; J1650; J2405; J3475; J3480; J3490; J7030